=== PATIENT | male | born 1980 | race Caucasian/White ===

== ENCOUNTER 2016-04-14 20:23 | Inpatient (IN) | payer MEDICARE ==
[2016-04-14] MEDS ORDERED: ASPIRIN 81 MG TABLET, CHEWABLE PO ONE (20:44)
[2016-04-14 20:52] LABS: ABSOLUTE BASOPHILS # (AUTO) 0.1 10^3/uL (0.0-0.2); ABSOLUTE EOSINOPHILS # (AUTO) 0.2 10^3/uL (0.0-0.6); ABSOLUTE LYMPHOCYTES (AUTO) 6.5 10^3/uL (0.5-4.7); ABSOLUTE NEUT (AUTO) 8.8 10^3/uL (1.7-8.2); BASOPHILS % (AUTO) 0.9 % (0-2); EOSINOPHILS % (AUTO) 1.2 % (0-6); HEMATOCRIT 47.6 % (37.9-51.0); HEMOGLOBIN 16.2 g/dL (13.5-17.0); LYMPHOCYTES % (AUTO) 38.9 % (13-45); MEAN CORPUSCULAR HEMOGLOBIN 30.9 pg (27.0-33.4); MEAN CORPUSCULAR VOLUME 91 fl (80-97); MONOCYTES % (AUTO) 6.3 % (3-13); RED BLOOD COUNT 5.23 10^6/uL (4.35-5.55); RED CELL DISTRIBUTION WIDTH 13.9 % (11.5-14.0); SEGMENTED NEUTROPHILS % (AUTO) 52.7 % (42-78); WHITE BLOOD COUNT 16.6 10^3/uL (4.0-10.5)
[2016-04-14 21:05] LABS: ALANINE AMINOTRANSFERASE 48 U/L (21-72); ALBUMIN 4.3 g/dL (3.5-5.0); ALKALINE PHOSPHATASE 75 U/L (38-126); ANION GAP 13 (5-19); ASPARTATE AMINO TRANSFERASE 33 U/L (17-59); BILIRUBIN,TOTAL 0.6 mg/dL (0.2-1.3); BLOOD UREA NITROGEN 13 mg/dL (7-20); CALCIUM 10.8 mg/dL (8.4-10.2); CARBON DIOXIDE 25 mmol/L (22-30); CHLORIDE 101 mmol/L (98-107); CREATINE KINASE 46 U/L (55-170); CREATININE RESULT 0.75 mg/dL (0.52-1.25); GLUCOSE 89 mg/dL (75-110); POTASSIUM 4.3 mmol/L (3.6-5.0); SODIUM 138.7 mmol/L (137-145); TOTAL PROTEIN 7.4 g/dL (6.3-8.2)
[2016-04-14 21:15] LABS: CREATINE KINASE MB 0.54 ng/mL (<4.55)
[2016-04-14 21:16] LABS: TROPONIN I < 0.012 ng/mL
[2016-04-14] MEDS ORDERED: MORPHINE SULFATE 10 MG/ML INJ IV ONE ×2 (21:36→23:31)
--- NOTE | 2016-04-14 21:38 | ER Document Report ---
ED Cardiac - General Chief Complaint: Chest Pain Stated Complaint: CHEST PAIN Time seen by provider: 21:36 Mode of Arrival: Medic Information source: Patient TRAVEL OUTSIDE OF THE [place] IN LAST 30 DAYS: No - HPI Patient complains to provider of: Chest pain Was the onset of pain: Sudden Is the pain a: New problem Chest pain location: Substernal Quality of pain: Dull Chest pain radiation location: Left shoulder Severity now: Moderate Severity at worst: Moderate Pain level currently: 3 Chest pain precipitating factors: At Rest Cardiac risk factors: Smoker, Dyslipidemia Positive cardiac history: No Associated symptoms: Shortness of breath Exacerbated by: Denies Relieved by: Nothing Similar symptoms previously: Yes Recently seen / treated by doctor: No Notes: Patient is a 36-year-old male with a history of bipolar, PTSD, anxiety and high cholesterol, presents to the room complaining of left-sided chest pain and pressure that started around 2:00 this afternoon while at rest, it radiates to his left shoulder, reports shortness of breath associated with it, it is dull and achy and pressure-like in nature, with no aggravating or alleviating symptoms, he reports a history of similar symptoms in the past, and received a cardiac catheterization in 2009 which she reports as being normal, states that he has been off of his Lipitor for the past couple of months due to financial issues, he denies any cough, denies any increased stressors or anxiety triggers recently, he is a smoker - Related Data Allergies/Adverse Reactions: erythromycin base [Erythromycin Base] Allergy (Severe, Verified 12/10/15 02:13) Hives lamotrigine [From Lamictal] Allergy (Severe, Verified 12/10/15 02:13) Hives nitroglycerin Allergy (Verified 12/10/15 02:13) Hypotension rhondec Allergy (Severe, Uncoded 12/06/15 20:11) Past Medical History - General Information source: Patient - Social History Smoking Status: Current Every Day Smoker Family History: CAD, Hyperlipidemia, Hypertension - Past Medical History Cardiac Medical History: Reports: Hx Hypercholesterolemia Denies: Hx Coronary Artery Disease, Hx Heart Attack, Hx Hypertension Pulmonary Medical History: Reports: Hx Asthma - LAST ATTACK 08/02/15, Hx Pneumonia - 10/02, Hx Sleep Apnea Denies: Hx Bronchitis, Hx COPD, Hx Tuberculosis Neurological Medical History: Reports: Hx Migraine. 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 - Immunizations Hx Diphtheria, Pertussis, Tetanus Vaccination: Yes Hx Pneumococcal Vaccination: 10/26/12 Review of Systems - Review of Systems Constitutional: No symptoms reported EENT: No symptoms reported Cardiovascular: See HPI Respiratory: See HPI Gastrointestinal: No symptoms reported Genitourinary: No symptoms reported Male Genitourinary: No symptoms reported Musculoskeletal: No symptoms reported Skin: No symptoms reported Hematologic/Lymphatic: No symptoms reported Neurological/Psychological: No symptoms reported -: Yes All other systems reviewed and negative Physical Exam - Vital signs Vitals: Pulse Ox 91 L 04/14/16 20:34 Interpretation: Normal - General General appearance: Appears well, Alert - HEENT Head: Normocephalic, Atraumatic Eyes: Normal Pupils: PERRL - Respiratory Respiratory status: No respiratory distress Chest status: Nontender Breath sounds: Normal Chest palpation: Normal - Cardiovascular Rhythm: Regular Heart sounds: Normal auscultation Murmur: No - Abdominal Inspection: Morbidly Obese Distension: No distension Bowel sounds: Normal Tenderness: Nontender Organomegaly: No organomegaly - Back Back: Normal, Nontender - Extremities General upper extremity: Normal inspection, Nontender, Normal color, Normal ROM , Normal temperature General lower extremity: Normal inspection, Nontender, Normal color, Normal ROM , Normal temperature, Normal weight bearing. No: David's sign - Neurological Neuro grossly intact: Yes Cognition: Normal Orientation: AAOx4 Lance Coma Scale Eye Opening: Spontaneous Lance Coma Scale Verbal: Oriented [place] Coma Scale Motor: Obeys Commands Lance Coma Scale Total: 15 Speech: Normal Motor strength normal: LUE, RUE, LLE, RLE Sensory: Normal - Psychological Associated symptoms: Normal affect, Normal mood - Skin Skin Temperature: Warm Skin Moisture: Dry Skin Color: Normal Course - Re-evaluation Re-evalutation: 04/15/16 01:24 Patient resting comfortably, reports feeling much better and symptoms are completely resolved after receiving a breathing treatment, symptoms are consistent with likely viral upper respiratory infection, however patient is a smoker and does have leukocytosis, therefore he will be placed on a short form course of antibiotics, provided with a prescription for albuterol inhaler as well as his Lipitor which he ran out of several months ago, smoking cessation was discussed, patient was advised to follow-up with his primary care provider in 2-3 days or return if symptoms worsen, patient and spouse at bedside acknowledge understanding and agreement with this plan 04/15/16 02:08 Patient having some periods of hypoxia, when taken off of oxygen prior to discharge, pulse ox ranges from 83-95%, he does report some shortness of breath with this, and is now having chest pain once again, a for a CTA has been ordered to rule out pulmonary embolism intra-thoracic pathology 04/15/16 03:35 patient continues to become hypoxic when oxygen is is removed, he continues to complain of shortness of breath while of it is removed as well, his oxygen saturation drops down to 83-86%, therefore patient was discussed with the hospitalist who agrees to admit for further evaluation and treatment, I did also discuss CT scan findings with patient and at bedside which include to nodules in the right lung which patient was recommended to have a follow-up CT scan in 6 months to reevaluate - Vital Signs Vital signs: Temp Pulse Resp BP Pulse Ox 98.2 F 12 103/69 92 04/15/16 02:00 04/15/16 03:01 04/15/16 03:00 04/15/16 03:01 - Laboratory Result Diagrams: 04/14/16 20:34 04/14/16 20:34 Laboratory results interpreted by me: 04/14/16 04/14/16 04/14/16 20:34 20:34 23:55 WBC 16.6 H Absolute Neutrophils 8.8 H Absolute Lymphocytes 6.5 H Calcium 10.8 H Creatine Kinase 46 L 38 L - Diagnostic Test Radiology reviewed: Image reviewed, Reports reviewed - EKG Interpretation by Me EKG shows normal: Sinus rhythm Rate: Normal Rhythm: NSR When compared to previous EKG there are: No significant change Discharge - Discharge Clinical Impression: Bronchitis COPD (chronic obstructive pulmonary disease) Qualifiers: COPD type: chronic bronchitis Chronic bronchitis type: simple Qualified Code(s) : J41.0 - Simple chronic bronchitis Condition: Stable Disposition: ADMITTED INPATIENT Admitting Provider: Hospitalist Unit Admitted: Telemetry Additional Instructions: Follow up with your primary care provider in one to 2 days. Return to the emergency room immediately if symptoms worsen or any additional concerns. Stop smoking! Prescriptions: Atorvastatin Calcium [Lipitor 40 mg Tablet] 40 mg PO QHS #30 tablet Albuterol Sulfate [Proair HFA Inhalation Aerosol 8.5 gm MDI] 1 puff IH Q4 PRN # 1 mdi PRN Reason: Levofloxacin [Levaquin 750 mg Tablet] 750 mg PO DAILY #4 tablet Forms: Smoking Cessation Education Referrals: POOL TOVAR MD [Primary Care Provider] - Follow up as needed
[2016-04-15] MEDS ORDERED: ALBUTEROL SULFATE 0.083% NEB 2.5 MG/3 ML AMPUL NEB ONE (00:49)
[2016-04-15 00:54] LABS: CREATINE KINASE MB 0.34 ng/mL (<4.55)
[2016-04-15 01:00] LABS: TROPONIN I < 0.012 ng/mL
[2016-04-15] MEDS ORDERED: LEVOFLOXACIN 500 MG TABLET PO ONE (01:22)
[2016-04-15] MEDS ORDERED: LEVOFLOXACIN 750 MG TABLET PO ONE (01:24)
[2016-04-15] MEDS ORDERED: IPRATROPIUM/ALBUTEROL 0.5-2.5 MG/3 ML AMPUL NEB ONE ×2 (01:30→03:33)
[2016-04-15] MEDS ORDERED: METHYLPREDNISOLONE INJ 125 MG/2 ML SDV IV ONE (01:30)
[2016-04-15] MEDS ORDERED: ALBUTEROL SULFATE HFA (90 MCG/PUFF) 8 GM MDI (1 MDI/ER DISP) IH SCH (02:00)
[2016-04-15] MEDS ORDERED: NICOTINE 14 MG/24 HR PATCH.TD24 TD PRN (04:50)
[2016-04-15] MEDS ORDERED: GUAIFENESIN SYRP 200 MG/10 ML UDC PO PRN (04:51)
[2016-04-15] MEDS ORDERED: ALBUTEROL SULFATE 0.083% NEB 2.5 MG/3 ML AMPUL NEB PRN (04:51)
[2016-04-15] MEDS ORDERED: ACETAMINOPHEN 325 MG TABLET PO PRN (04:51)
[2016-04-15] MEDS ORDERED: INSULIN LISPRO 100 UNIT/ML 3 ML VIAL SUBCUT PRN (04:52)
[2016-04-15] MEDS ORDERED: GLUCAGON,HUMAN RECOMB 1 MG INJ IM PRN (04:52)
[2016-04-15] MEDS ORDERED: DEXTROSE 40% GEL 15 GM TUBE PO PRN ×2 (04:52)
[2016-04-15] MEDS ORDERED: DEXTROSE 50%-WATER 25 GM/50 ML DISP.SYRIN IV PRN ×2 (04:52)
--- NOTE | 2016-04-15 05:20 | PDOC H&P ---
History of Present Illness Admission Date/PCP: 04/15/16 03:[address] Char HATHAWAY Psychiatry Patient complains of: Chest pain History of Present Illness: ANNA ELLIS is a 36 year old morbidly obese male, with underlying hyperlipidemia, asthma versus COPD versus reactive airway disease, obstructive sleep apnea, not on CPAP due to device being removed from his home, history of migraine headaches, arthritis, esophageal reflux disease, bipolar disorder and posttraumatic stress disorder who presents to the emergency room for evaluation of sudden onset of left-sided pressure-like chest pain approximately 2 PM the afternoon of the while at rest. Radiated to his left shoulder. Nothing made the pain worse or better. Some associated shortness of breath and nausea, but no fever or chills. No sick contacts. To three-day history of a dry hacking cough. Currently chest pain-free. Was noted to be hypoxic on room air in the emergency room, low to mid 80 percentile range. This alter the emergency room physician's initial plans to discharge the gentleman home. He is status post what he describes as a negative cardiac catheterization in 2009. No history of pulmonary embolus or DVT, myocardial infarction or congestive heart failure. Less than a pack-a-day smoker. No alcohol or illicit drug use. Patient has been discussed with emergency room physician who evaluated the patient. . Laboratory results are listed in [employer] and are reviewed. X-ray summary results are listed below, with full report(s) reviewed. . EKG reviewed. Social history/personal habits: from his . No children. On disability due to a number of health problems, including chronic back pain. Personal habits as noted above. Allergies/adverse reactions are listed in [employer] and are reviewed. Home medications are reviewed by discussion with patient and have been reconciled by nursing staff in [facility]. Home medications initially autopopulated into [employer] may not accurately reflect patient's true medications, dosages, and/or frequencies. REVIEW OF SYSTEMS: Constitutional: No fever or chills. Eyes: Wears contacts. ENT: No swallowing problems or complaints. No hearing problems or complaints. Pulmonary: See history and present illness. Cardiovascular: See history and present illness. Gastrointestinal: See history and present illness. Skin: No current complaints, including rashes. Hematologic: No unusual easy bruising or bleeding. Neurologic: No current complaints, including numbness or tingling. Musculoskeletal: Chronic back pain. Psychiatric: Mild depression; denies suicidal or homicidal ideation. Endocrine: No current complaints, including polyuria. Genitourinary: No current complaints, including dysuria. PHYSICAL EXAMINATION: 5 feet 7 inches tall. 138.3 kg. BMI 47.8 kg/m. Temperature 98.2. Blood pressure 118/59. Pulse 83 and regular. 92% saturation on 2 L oxygen per nasal cannula. Respirations are 24 and unlabored. Morbidly obese otherwise well-developed bearded male appearing approximately his stated age. Pleasant awake alert and cooperative. Slightly anxious, but no annemarie agitation. Skin is warm and dry. No grossly obvious evidence of rash in areas of skin examined. No subcutaneous nodules palpated. ENT: Hearing grossly normal to normal conversation. Tongue midline on protrusion pink and slightly tacky. Eyes: No scleral icterus. Pupils equal and reactive to light at 4 mm. [place] conjunctivae. Neck is supple and nontender to gentle active range of motion and palpation. Midline trachea. No palpable thyroid nodule mass enlargement or tenderness. Lymphatic: No palpable cervical or clavicular nodes. Neck and lymphatic exams limited by patient body habitus. Psychiatric: Reasonable insight into acute and chronic medical issues. Oriented to time location and why here. Lungs: Auscultation reveals clear and equal breath sounds bilaterally. No use of accessory respiratory muscles. Cardiovascular: Heart regular rate and rhythm, without gallop murmur or rub. No carotid or abdominal aortic bruits. No ankle or pedal edema. Faintly palpable dorsalis pedis pulses. Abdomen: soft, obese, nontender with positive bowel sounds. Unable to adequately evaluate abdomen for masses or organomegaly due to body habitus. Extremities: Feet are warm and dry. No calf tenderness to compression. No grossly obvious visual evidence of calf swelling. Gentle manipulation of lower extremities fails to reveal any obvious evidence of injury or instability to knees hips or ankles. Neurologic: Moves upper extremities grossly normally. Patellar reflexes absent. Absent Babinski. Light touch is intact at feet. Dorsiflexion and plantarflexion of feet 5 / 5 and symmetric. 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 Hematology: Reports: Anemia - A CHILD Past Surgical History Past Surgical History: Reports: Cardiac Catheterization - dx with "cardiac spasms" 2010, Cholecystectomy Social History Information Source: Patient, Emergency Med Personnel, [facility] Records Smoking Status: Current Every Day Smoker Frequency of Alcohol Use: None Hx Recreational Drug Use: No Hx Prescription Drug Abuse: No - Advance Directive Resuscitation Status: Full Code Surrogate healthcare decision maker:: Mother Family History Family History: CAD, Hyperlipidemia, Hypertension Parental Family History Reviewed: Yes Children Family History Reviewed: NA Sibling(s) Family History Reviewed.: Yes Medication/Allergy Home Medications: Divalproex Sodium [Depakote ER 500 mg Tab.sr] 1,000 mg PO BID 05/02/13 Aripiprazole [Abilify 10 mg Tablet] 30 mg PO DAILY 08/08/15 Clonidine HCl [Catapres 0.2 mg Tablet] 0.1 mg PO DAILY 08/08/15 Mirtazapine [Remeron] 45 mg PO DAILY 08/08/15 Omeprazole [Prilosec] 40 mg PO DAILY 08/08/15 Paroxetine HCl [Paxil] 50 mg PO DAILY 08/08/15 Suvorexant [Belsomra] 20 mg PO DAILY 08/08/15 Alprazolam [Xanax] 2 mg PO BID 12/10/15 Albuterol Sulfate [Proair HFA Inhalation Aerosol 8.5 gm MDI] 1 puff IH Q4 PRN # 1 mdi 04/15/16 Atorvastatin Calcium [Lipitor 40 mg Tablet] 40 mg PO QHS #30 tablet 04/15/16 Levofloxacin [Levaquin 750 mg Tablet] 750 mg PO DAILY #4 tablet 04/15/16 Trazodone HCl 100 mg PO DAILY 04/15/16 Allergies/Adverse Reactions: erythromycin base [Erythromycin Base] Allergy (Severe, Verified 04/15/16 03:50) Hives lamotrigine [From Lamictal] Allergy (Severe, Verified 04/15/16 03:50) Hives nitroglycerin Allergy (Verified 04/15/16 03:50) Hypotension rhondec Allergy (Severe, Uncoded 12/06/15 20:11) Physical Exam Vital Signs: Temp Pulse Resp BP Pulse Ox 98.2 F 22 H 118/59 L 90 L 04/15/16 02:00 04/15/16 04:01 04/15/16 04:01 04/15/16 04:01 Results Impressions: Chest X-Ray 04/14/16 20:44 IMPRESSION: NO ACUTE RADIOGRAPHIC FINDING IN THE CHEST. Chest/Abdomen CTA 04/15/16 02:08 IMPRESSION: No evidence of pulmonary emboli. New small ground-glass nodularity of the right middle lobe measures up to 0.6 cm. 3 month follow-up CT of the chest recommended. Assessment & Plan - Diagnosis (1) Chest pain Qualifiers: Chest pain type: other chest pain Qualified Code(s): R07.89 - Other chest pain; R07.8 - Other chest pain Is this a current diagnosis for this admission?: YesPlan: Unlikely due to acute coronary syndrome, but will obtain a third troponin. Patient urged to notify staff should chest pain recur. (2) Hypoxia Is this a current diagnosis for this admission?: Yes (3) Nodule of right lung Is this a current diagnosis for this admission?: YesPlan: Outpatient follow-up recommended to patient by emergency room physician. (4) COPD exacerbation Is this a current diagnosis for this admission?: YesPlan: Patient will be admitted under COPD exacerbation protocol. Incentive spirometry twice a day. Scheduled DuoNeb's. PRN albuterol nebs daily prednisone. Prevacid for gastritis prophylaxis. Antibiotics will consist of Rocephin and intravenous doxycycline.. I strongly encouraged patient to notify staff should patient feel that respiratory status is worsening. Patient is a full code. I have strongly urged patient to be careful getting out of bed, to avoid a fall with injury. Knee high SCDs for DVT prophylaxis, along with subcutaneous Lovenox Impression and plans were discussed with patient, who concurs. Time spent in evaluation and management of patient: 64 minutes. (5) Obstructive sleep apnea Is this a current diagnosis for this admission?: YesPlan: CPAP (6) Tobacco abuse Is this a current diagnosis for this admission?: YesPlan: When necessary nicotine patch - Inpatient Certification Based on my medical assessment, after consideration of the patient's comorbidities, presenting symptoms, or acuity I expect that the services needed warrant INPATIENT care.: Yes I certify that my determination is in accordance with my understanding of Medicare's requirements for reasonable and necessary INPATIENT services [42 CFR 412.3e].: Yes Medical Necessity: Need Close Monitoring Due to Risk of Patient Decompensation, Need For Continuous Telemetry Monitoring, Need for Nebulizer Therapy and Monitoring of Response, Need for IV Antibiotics, Risk of Complication if Not Cared For in Hospital Post Hospital Care: D/C or Transfer Summary
[2016-04-15] MEDS: CEFTRIAXONE 1 GM/D5W RTU 50 ML IV SCH (05:43)
[2016-04-15] MEDS: LANSOPRAZOLE 30 MG TAB.RAP.DR PO SCH (05:44)
[2016-04-15] MEDS ORDERED: DOXYCYCLINE HYCLATE INJ 100 MG VIAL IV SCH (06:00)
[2016-04-15 07:11] LABS: ABSOLUTE BASOPHILS # (AUTO) 0.1 10^3/uL (0.0-0.2); ABSOLUTE LYMPHOCYTES (AUTO) 1.6 10^3/uL (0.5-4.7); ABSOLUTE MONOCYTES (AUTO) 0.2 10^3/uL (0.1-1.4); ABSOLUTE NEUT (AUTO) 13.2 10^3/uL (1.7-8.2); BASOPHILS % (AUTO) 0.6 % (0-2); EOSINOPHILS % (AUTO) 0.1 % (0-6); HEMATOCRIT 46.3 % (37.9-51.0); HEMOGLOBIN 15.6 g/dL (13.5-17.0); HGB HCT DIFFERENCE 0.5; LYMPHOCYTES % (AUTO) 10.9 % (13-45); MEAN CORPUSCULAR HEMOGLOBIN 30.6 pg (27.0-33.4); MEAN CORPUSCULAR HGB CONC 33.7 g/dL (32.0-36.0); MEAN CORPUSCULAR VOLUME 91 fl (80-97); MONOCYTES % (AUTO) 1.1 % (3-13); RED CELL DISTRIBUTION WIDTH 13.6 % (11.5-14.0); SEGMENTED NEUTROPHILS % (AUTO) 87.3 % (42-78); WHITE BLOOD COUNT 15.1 10^3/uL (4.0-10.5)
[2016-04-15] MEDS: IPRATROPIUM/ALBUTEROL 0.5-2.5 MG/3 ML AMPUL NEB SCH ×3 (07:51→20:01)
[2016-04-15] MEDS: ENOXAPARIN SODIUM INJ 40 MG/0.4 ML DISP.SYRIN SUBCUT SCH (07:52)
[2016-04-15] MEDS: PREDNISONE 20 MG TABLET PO SCH (10:44)
--- NOTE | 2016-04-15 11:42 | PDOC PROGRESS REPORT ---
Subjective Progress Note for:: 04/15/16 Subjective:: The patient is currently resting in bed. Patient states that his symptoms have improved since admission. Still unable to fully complete sentences. Dry cough. No pain. Physical Exam Vital Signs: Temp Pulse Resp BP Pulse Ox 97.2 F 84 16 100/64 96 04/15/16 09:15 04/15/16 09:15 04/15/16 09:15 04/15/16 09:15 04/15/16 09:15 General appearance: PRESENT: no acute distress, cooperative, well-developed, well-nourished Head exam: PRESENT: atraumatic, normocephalic Eye exam: PRESENT: conjunctiva pink, EOMI, PERRLA. ABSENT: scleral icterus Ear exam: PRESENT: normal external ear exam Mouth exam: PRESENT: moist, tongue midline Neck exam: ABSENT: carotid bruit, JVD, lymphadenopathy, thyromegaly Respiratory exam: PRESENT: decreased breath sounds, symmetrical. ABSENT: rales , rhonchi, tachypnea, unlabored, wheezes Cardiovascular exam: PRESENT: RRR. ABSENT: diastolic murmur, rubs, systolic murmur Pulses: PRESENT: normal dorsalis pedis pul Vascular exam: PRESENT: normal capillary refill GI/Abdominal exam: PRESENT: normal bowel sounds, soft. ABSENT: distended, guarding, mass, organolmegaly, rebound, tenderness Rectal exam: PRESENT: deferred Extremities exam: PRESENT: full ROM. ABSENT: calf tenderness, clubbing, pedal edema Neurological exam: PRESENT: alert, awake, oriented to person, oriented to place , oriented to time, oriented to situation, CN II-XII grossly intact. ABSENT: motor sensory deficit Psychiatric exam: PRESENT: appropriate affect, normal mood. ABSENT: homicidal ideation, suicidal ideation Skin exam: PRESENT: dry, intact, warm. ABSENT: cyanosis, rash Results Laboratory Results: 04/15/16 06:51 04/15/16 06:51 WBC 15.1 H RBC 5.10 Hgb 15.6 Hct 46.3 MCV 91 MCH 30.6 MCHC 33.7 RDW 13.6 Plt Count 232 Seg Neutrophils % 87.3 H Lymphocytes % 10.9 L Monocytes % 1.1 L Eosinophils % 0.1 Basophils % 0.6 Absolute Neutrophils 13.2 H Absolute Lymphocytes 1.6 Absolute Monocytes 0.2 Absolute Eosinophils 0.0 Absolute Basophils 0.1 04/15/16 06:51 Troponin I < 0.012 Impressions: Chest X-Ray 04/14/16 20:44 IMPRESSION: NO ACUTE RADIOGRAPHIC FINDING IN THE CHEST. Chest/Abdomen CTA 04/15/16 02:08 IMPRESSION: No evidence of pulmonary emboli. New small ground-glass nodularity of the right middle lobe measures up to 0.6 cm. 3 month follow-up CT of the chest recommended. Assessment & Plan - Diagnosis (1) Acute hypoxemic respiratory failure Is this a current diagnosis for this admission?: YesPlan: Will continue supplemental O2 (2) Reactive airway disease Qualifiers: Asthma severity: mild intermittent Asthma complication type: with acute exacerbation Qualified Code(s): J45.21 - Mild intermittent asthma with (acute) exacerbation Is this a current diagnosis for this admission?: YesPlan: Will continue steroids and nebs. Will add singular. (3) Bronchitis Is this a current diagnosis for this admission?: YesPlan: Will continue Doxy (4) Nodule of right lung Is this a current diagnosis for this admission?: YesPlan: 3 month follow-up (5) GERD (gastroesophageal reflux disease) Qualifiers: Esophagitis presence: without esophagitis Qualified Code(s): K21.9 - Gastro-esophageal reflux disease without esophagitis Is this a current diagnosis for this admission?: YesPlan: Continue home meds (6) Obstructive sleep apnea Is this a current diagnosis for this admission?: YesPlan: Continue CPAP at night (7) Morbid obesity with BMI of 50.0-59.9, adult Is this a current diagnosis for this admission?: Yes (8) Bipolar disorder Is this a current diagnosis for this admission?: No (9) Hyperlipidemia Is this a current diagnosis for this admission?: No (10) PTSD (post-traumatic stress disorder) Is this a current diagnosis for this admission?: No (11) Tobacco abuse Is this a current diagnosis for this admission?: Yes - Time Time Spent with patient: 35 or more minutes Medications reviewed and adjusted accordingly: Yes Anticipated discharge: Home Within: within 24 hours, within 48 hours
[2016-04-15] MEDS ORDERED: ALBUTEROL SULFATE HFA (90 MCG/PUFF) 8 GM MDI (1 MDI/ER DISP) IH PRN (13:22)
[2016-04-15] MEDS ORDERED: (PENDING PHARMACY ID) (Paroxetine Hcl [Paxil] 10 MG) PO SCH (13:30)
[2016-04-15] MEDS ORDERED: ARIPIPRAZOLE 5 MG TABLET PO ONE (14:00)
[2016-04-15] MEDS ORDERED: PAROXETINE HCL 20 MG TABLET PO ONE ×2 (14:00)
[2016-04-15] MEDS ORDERED: DIVALPROEX SODIUM 500 MG TAB.SR.24H PO ONE (14:00)
[2016-04-15] MEDS: ALPRAZOLAM 0.5 MG TABLET PO PRN ×2 (15:13→21:45)
[2016-04-15] MEDS ORDERED: ALBUTEROL SULFATE HFA (90 MCG/PUFF) 200 PUFF/8.5 GM MDI IH PRN (15:35)
[2016-04-15] MEDS ORDERED: LANSOPRAZOLE 30 MG TAB.RAP.DR PO ONE (16:00)
[2016-04-15] MEDS: DOXYCYCLINE HYCLATE 100 MG in DEXTROSE 5%-WATER 250 ML IV SCH (17:02)
--- NOTE | 2016-04-15 17:42 | EKG REPORT ---
SEVERITY:- NORMAL ECG - SINUS RHYTHM : Confirmed by: Nat May MD 15-Apr-2016 17:42:11
[2016-04-15] MEDS: DIVALPROEX SODIUM 500 MG TAB.SR.24H PO SCH (21:40)
[2016-04-15] MEDS ORDERED: (PENDING PHARMACY ID) (Mirtazapine [Remeron] 45 MG) PO SCH (22:00)
[2016-04-15] MEDS ORDERED: MIRTAZAPINE 15 MG TABLET PO SCH (22:00)
[2016-04-15] MEDS ORDERED: ATORVASTATIN CALCIUM 40 MG TABLET PO SCH (22:00)
[2016-04-15] MEDS ORDERED: (PENDING PHARMACY ID) (Trazodone Hcl [Desyrel] 100 MG) PO SCH (22:00)
[2016-04-15] MEDS ORDERED: TRAZODONE HCL 50 MG TABLET PO SCH (22:00)
[2016-04-16] MEDS: DOXYCYCLINE HYCLATE 100 MG in DEXTROSE 5%-WATER 250 ML IV SCH (05:47)
[2016-04-16] MEDS: LANSOPRAZOLE 30 MG TAB.RAP.DR PO SCH (05:51)
[2016-04-16] MEDS ORDERED: LANSOPRAZOLE 30 MG TAB.RAP.DR PO SCH (06:00)
[2016-04-16] MEDS: IPRATROPIUM/ALBUTEROL 0.5-2.5 MG/3 ML AMPUL NEB SCH ×2 (08:25→13:43)
[2016-04-16] MEDS: ENOXAPARIN SODIUM INJ 40 MG/0.4 ML DISP.SYRIN SUBCUT SCH (09:06)
[2016-04-16] MEDS: DIVALPROEX SODIUM 500 MG TAB.SR.24H PO SCH (09:08)
[2016-04-16] MEDS: CEFTRIAXONE 1 GM/D5W RTU 50 ML IV SCH (09:08)
[2016-04-16] MEDS: PREDNISONE 20 MG TABLET PO SCH (09:09)
[2016-04-16] MEDS: ALPRAZOLAM 0.5 MG TABLET PO PRN (09:09)
[2016-04-16] MEDS ORDERED: ARIPIPRAZOLE 5 MG TABLET PO SCH (10:00)
[2016-04-16] MEDS ORDERED: PAROXETINE HCL 20 MG TABLET PO SCH ×2 (10:00)
[2016-04-16 11:30] VITALS: BP 126/76
--- NOTE | 2016-04-16 14:33 | PDOC DISCHARGE SUMMARY ---
General - Admit/Disc Date/PCP Admission Date/Primary Care Provider: 04/15/16 04:51 POOL SPENCER MD Discharge Date: 04/16/16 - Discharge Diagnosis (1) Acute hypoxemic respiratory failure Is this a current diagnosis for this admission?: Yes (2) Reactive airway disease Is this a current diagnosis for this admission?: Yes (3) Bronchitis Is this a current diagnosis for this admission?: Yes (4) Nodule of right lung Is this a current diagnosis for this admission?: Yes (5) GERD (gastroesophageal reflux disease) Is this a current diagnosis for this admission?: Yes (6) Obstructive sleep apnea Is this a current diagnosis for this admission?: Yes (7) Morbid obesity with BMI of 50.0-59.9, adult Is this a current diagnosis for this admission?: Yes (8) Bipolar disorder Is this a current diagnosis for this admission?: Yes (9) Hyperlipidemia Is this a current diagnosis for this admission?: Yes (10) PTSD (post-traumatic stress disorder) Is this a current diagnosis for this admission?: Yes (11) Tobacco abuse Is this a current diagnosis for this admission?: Yes - Additional Information Resuscitation Status: Full Code Discharge Diet: As Tolerated Discharge Activity: Activity As Tolerated Home Medications: Albuterol Sulfate [Proair HFA] 1 puff PO Q4HP PRN 04/15/16 Alprazolam [Xanax] 2 mg PO BID 04/15/16 Aripiprazole [Abilify 30 mg Tablet] 30 mg PO DAILY 04/15/16 Atorvastatin Calcium [Lipitor 40 mg Tablet] 40 mg PO QHS 04/15/16 Divalproex Sodium [Divalproex Sodium ER] 1,000 mg PO BID 04/15/16 Mirtazapine [Remeron] 45 mg PO QHS 04/15/16 Omeprazole 40 mg PO DAILY 04/15/16 Paroxetine HCl [Paxil] 10 mg PO DAILY 04/15/16 Paroxetine HCl [Paxil] 40 mg PO DAILY 04/15/16 Suvorexant [Belsomra] 20 mg PO QHS 04/15/16 Trazodone HCl [Desyrel] 100 mg PO QHS 04/15/16 Doxycycline Hyclate [Vibramycin] 100 mg PO BID #16 capsule 04/16/16 Prednisone [Deltasone 10 mg Tablet] 10 mg PO ASDIR PRN #21 tablet 04/16/16 History of Present Illness Patient complains of: Shortness of breath History of Present Illness: ANNA ELLIS is a 36 year old morbidly obese male, with underlying hyperlipidemia, asthma versus COPD versus reactive airway disease, obstructive sleep apnea, not on CPAP due to device being removed from his home, history of migraine headaches, arthritis, esophageal reflux disease, bipolar disorder and posttraumatic stress disorder who presents to the emergency room for evaluation of sudden onset of left-sided pressure-like chest pain approximately 2 PM the afternoon of the while at rest. Radiated to his left shoulder. Nothing made the pain worse or better. Some associated shortness of breath and nausea, but no fever or chills. No sick contacts. To three-day history of a dry hacking cough. Was noted to be hypoxic on room air in the emergency room, low to mid 80 percentile range. This alter the emergency room physician's initial plans to discharge the gentleman home. He is status post what he describes as a negative cardiac catheterization in 2009. No history of pulmonary embolus or DVT, myocardial infarction or congestive heart failure. Less than a pack-a-day smoker. No alcohol or illicit drug use.The patient was referred to the hospitalists for observation and management. Hospital Course Hospital Course: The patient was admitted to continuous telemetry unit. The patient was placed on scheduled nebs as well as PRN nebs, steroids, and supplemental oxygen. The patient's oxygen, steroids, and nebs were titrated and weaned. The patient is back to baseline and able to complete sentences. The patient was placed on doxycycline given his symptoms of bronchitis. The patient has made substantial improvements overnight and is able to maintain his oxygen on room air. The patient was ambulated and did not drop below 93%. The patient is agreeable to discharge with the grants he will follow with his primary care provider. Physical Exam Vital Signs: Temp Pulse Resp BP Pulse Ox 97.3 F 82 16 126/76 H 92 04/16/16 14:20 04/16/16 14:20 04/16/16 14:20 04/16/16 14:20 04/16/16 14:20 Intake & Output 04/14/16 04/15/16 04/16/16 23:59 23:59 23:59 Intake Total 700 1270 Output Total 300 350 Balance 400 920 General appearance: PRESENT: no acute distress, cooperative, well-developed, well-nourished Head exam: PRESENT: atraumatic, normocephalic Eye exam: PRESENT: conjunctiva pink, EOMI, PERRLA. ABSENT: scleral icterus Ear exam: PRESENT: normal external ear exam Mouth exam: PRESENT: moist, tongue midline Neck exam: ABSENT: carotid bruit, JVD, lymphadenopathy, thyromegaly Respiratory exam: PRESENT: decreased breath sounds, symmetrical. ABSENT: rales , rhonchi, tachypnea, unlabored, wheezes Cardiovascular exam: PRESENT: RRR. ABSENT: diastolic murmur, rubs, systolic murmur Pulses: PRESENT: normal dorsalis pedis pul Vascular exam: PRESENT: normal capillary refill GI/Abdominal exam: PRESENT: normal bowel sounds, soft. ABSENT: distended, guarding, mass, organolmegaly, rebound, tenderness Rectal exam: PRESENT: deferred Extremities exam: PRESENT: full ROM. ABSENT: calf tenderness, clubbing, pedal edema Neurological exam: PRESENT: alert, awake, oriented to person, oriented to place , oriented to time, oriented to situation, CN II-XII grossly intact. ABSENT: motor sensory deficit Psychiatric exam: PRESENT: appropriate affect, normal mood. ABSENT: homicidal ideation, suicidal ideation Skin exam: PRESENT: dry, intact, warm. ABSENT: cyanosis, rash Results Laboratory Results: Labs- Last Values WBC 15.1 10^3/uL (4.0-10.5) H 04/15/16 06:51 RBC 5.10 10^6/uL (4.35-5.55) 04/15/16 06:51 Hgb 15.6 g/dL (13.5-17.0) 04/15/16 06:51 Hct 46.3 % (37.9-51.0) 04/15/16 06:51 MCV 91 fl (80-97) 04/15/16 06:51 MCH 30.6 pg (27.0-33.4) 04/15/16 06:51 MCHC 33.7 g/dL (32.0-36.0) 04/15/16 06:51 RDW 13.6 % (11.5-14.0) 04/15/16 06:51 Plt Count 232 10^3/uL (150-450) 04/15/16 06:51 Seg Neutrophils % 87.3 % (42-78) H 04/15/16 06:51 Lymphocytes % 10.9 % (13-45) L 04/15/16 06:51 Monocytes % 1.1 % (3-13) L 04/15/16 06:51 Eosinophils % 0.1 % (0-6) 04/15/16 06:51 Basophils % 0.6 % (0-2) 04/15/16 06:51 Absolute Neutrophils 13.2 10^3/uL (1.7-8.2) H 04/15/16 06:51 Absolute Lymphocytes 1.6 10^3/uL (0.5-4.7) 04/15/16 06:51 Absolute Monocytes 0.2 10^3/uL (0.1-1.4) 04/15/16 06:51 Absolute Eosinophils 0.0 10^3/uL (0.0-0.6) 04/15/16 06:51 Absolute Basophils 0.1 10^3/uL (0.0-0.2) 04/15/16 06:51 Sodium 138.7 mmol/L (137-145) 04/14/16 20:34 Potassium 4.3 mmol/L (3.6-5.0) 04/14/16 20:34 Chloride 101 mmol/L (98-107) 04/14/16 20:34 Carbon Dioxide 25 mmol/L (22-30) 04/14/16 20:34 Anion Gap 13 (5-19) 04/14/16 20:34 BUN 13 mg/dL (7-20) 04/14/16 20:34 Creatinine 0.75 mg/dL (0.52-1.25) 04/14/16 20:34 Est GFR ( Amer) > 60 (>60) 04/14/16 20:34 Est GFR (Non-Af Amer) > 60 (>60) 04/14/16 20:34 Glucose 89 mg/dL (75-110) 04/14/16 20:34 POC Glucose 101 mg/dL (70-110) 04/16/16 11:14 Calcium 10.8 mg/dL (8.4-10.2) H 04/14/16 20:34 Total Bilirubin 0.6 mg/dL (0.2-1.3) 04/14/16 20:34 Direct Bilirubin 0.0 mg/dL (0.0-0.3) 04/14/16 20:34 AST 33 U/L (17-59) 04/14/16 20:34 ALT 48 U/L (21-72) 04/14/16 20:34 Alkaline Phosphatase 75 U/L (38-126) 04/14/16 20:34 Creatine Kinase 38 U/L (55-170) L 04/14/16 23:55 CK-MB (CK-2) 0.34 ng/mL (<4.55) 04/14/16 23:55 Troponin I < 0.012 ng/mL 04/15/16 06:51 Total Protein 7.4 g/dL (6.3-8.2) 04/14/16 20:34 Albumin 4.3 g/dL (3.5-5.0) 04/14/16 20:34 Impressions: Chest X-Ray 04/14/16 20:44 IMPRESSION: NO ACUTE RADIOGRAPHIC FINDING IN THE CHEST. Chest/Abdomen CTA 04/15/16 02:08 IMPRESSION: No evidence of pulmonary emboli. New small ground-glass nodularity of the right middle lobe measures up to 0.6 cm. 3 month follow-up CT of the chest recommended. Qualifiers PATEINT BEING DISCHARGED WITH ANY OF THE FOLLOWING DIAGNOSIS?: No Plan Discharge Plan: The patient is to followup with their primary care provider, Dr. Spencer, within one week for hospital followup regarding asthma exacerbation and bronchitis. Time Spent: Less than 30 Minutes
== END 2016-04-16 14:49 | disposition home or self-care (01) | DRG 190 ==
LOC: ER 20:23 → UNDOADMIN 04-15 03:44 → EH 04-15 03:44 → 4S 04-15 09:10
PROVIDERS: ADMIT Family Medicine; ATTEND Family Medicine
PROC: 3E0F73Z Introduction of Anti-inflammatory into Respiratory Tract, Via Natural or Artificial Opening (ICD-10-PCS; principal; 2016-04-15)
DX: J44.1 Chronic obstructive pulmonary disease with (acute) exacerbation (principal); J96.01 Acute respiratory failure with hypoxia; J45.21 Mild intermittent asthma with (acute) exacerbation; Z68.43 Body mass index [BMI] 50.0-59.9, adult; R91.1 Solitary pulmonary nodule; K21.9 Gastro-esophageal reflux disease without esophagitis; G47.33 Obstructive sleep apnea (adult) (pediatric); E66.01 Morbid (severe) obesity due to excess calories; F31.9 Bipolar disorder, unspecified; E78.5 Hyperlipidemia, unspecified; F43.10 Post-traumatic stress disorder, unspecified; M19.90 Unspecified osteoarthritis, unspecified site; G43.909 Migraine, unspecified, not intractable, without status migrainosus; G89.29 Other chronic pain; M54.9 Dorsalgia, unspecified; F17.210 Nicotine dependence, cigarettes, uncomplicated; I25.10 Atherosclerotic heart disease of native coronary artery without angina pectoris; E78.00 Pure hypercholesterolemia, unspecified; I10 Essential (primary) hypertension; J45.909 Unspecified asthma, uncomplicated; Z59.9 Problem related to housing and economic circumstances, unspecified; Z79.899 Other long term (current) drug therapy; Z88.1 Allergy status to other antibiotic agents; Z88.8 Allergy status to other drugs, medicaments and biological substances; Z82.49 Family history of ischemic heart disease and other diseases of the circulatory system
CPT/HCPCS: 36415; 71010; 71275; 80053; 82550; 82553; 82962; 84484; 85025; 87040; 87077; 87186; 93005; 93010; 94640; 94799; 96374; 96376; 99285; J0696; J1650; J1815; J2270; J2930; J3490; J7060; J7512; J7620

== ENCOUNTER 2016-06-18 11:56 | Emergency (ER) | payer MEDICARE ==
--- NOTE | 2016-06-18 12:57 | ER Document Report ---
ED Medical Screen (RME) - General Stated Complaint: CHEST PAIN Time seen by provider: 12:55 Mode of Arrival: Wheelchair Information source: Patient Notes: 36 yo obese smoker with COPD. hyperlipedmia, sleep apneic (without machine) started with shortness of breath(not getting enought in) at midnight, due to mild cough, had to sleep sitting up. Left anterior chest pain radiates into left shoulder since 10:45 this am. Cath years ago negative. No leg pain. TRAVEL OUTSIDE OF THE [place] IN LAST 30 DAYS: No - Related Data Allergies/Adverse Reactions: erythromycin base [Erythromycin Base] Allergy (Severe, Verified 04/15/16 03:50) Hives lamotrigine [From Lamictal] Allergy (Severe, Verified 04/15/16 03:50) Hives nitroglycerin Allergy (Verified 04/15/16 03:50) Hypotension rhondec Allergy (Severe, Uncoded 12/06/15 20:11) Past Medical History - Past Medical History Cardiac Medical History: Reports: Hx Hypercholesterolemia Denies: Hx Coronary Artery Disease, Hx Heart Attack, Hx Hypertension Pulmonary Medical History: Reports: Hx Asthma - LAST ATTACK 08/02/15, Hx Pneumonia - 10/02, Hx Sleep Apnea Denies: Hx Bronchitis, Hx COPD, Hx Tuberculosis Neurological Medical History: Reports: Hx Migraine. 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 - Immunizations Hx Diphtheria, Pertussis, Tetanus Vaccination: Yes
[2016-06-18 12:58] VITALS: BP 129/74
[2016-06-18] MEDS ORDERED: IPRATROPIUM/ALBUTEROL 0.5-2.5 MG/3 ML AMPUL NEB ONE (12:58)
[2016-06-18] MEDS ORDERED: ASPIRIN 81 MG TABLET, CHEWABLE PO ONE (12:58)
[2016-06-18] MEDS ORDERED: PREDNISONE 20 MG TABLET PO ONE (12:58)
[2016-06-18 13:34] LABS: ABSOLUTE BASOPHILS # (AUTO) 0.2 10^3/uL (0.0-0.2); ABSOLUTE EOSINOPHILS # (AUTO) 0.1 10^3/uL (0.0-0.6); ABSOLUTE LYMPHOCYTES (AUTO) 3.6 10^3/uL (0.5-4.7); ABSOLUTE MONOCYTES (AUTO) 1.4 10^3/uL (0.1-1.4); ABSOLUTE NEUT (AUTO) 8.5 10^3/uL (1.7-8.2); BASOPHILS % (AUTO) 1.2 % (0-2); EOSINOPHILS % (AUTO) 0.9 % (0-6); HEMATOCRIT 46.8 % (37.9-51.0); HEMOGLOBIN 16.1 g/dL (13.5-17.0); HGB HCT DIFFERENCE 1.5; MEAN CORPUSCULAR HEMOGLOBIN 31.3 pg (27.0-33.4); MEAN CORPUSCULAR HGB CONC 34.5 g/dL (32.0-36.0); MEAN CORPUSCULAR VOLUME 91 fl (80-97); MONOCYTES % (AUTO) 10.4 % (3-13); RED BLOOD COUNT 5.16 10^6/uL (4.35-5.55); RED CELL DISTRIBUTION WIDTH 13.7 % (11.5-14.0); SEGMENTED NEUTROPHILS % (AUTO) 61.5 % (42-78); WHITE BLOOD COUNT 13.7 10^3/uL (4.0-10.5)
--- NOTE | 2016-06-18 13:35 | EKG REPORT ---
SEVERITY:- OTHERWISE NORMAL ECG - SINUS RHYTHM BORDERLINE RIGHT AXIS DEVIATION : Confirmed by: Darrion Hogue MD 18-Jun-2016 13:35:05
[2016-06-18 13:57] LABS: ALANINE AMINOTRANSFERASE 47 U/L (21-72); ALBUMIN 4.1 g/dL (3.5-5.0); ALKALINE PHOSPHATASE 70 U/L (38-126); ANION GAP 14 (5-19); ASPARTATE AMINO TRANSFERASE 31 U/L (17-59); BILIRUBIN,DIRECT 0.4 mg/dL (0.0-0.4); BILIRUBIN,TOTAL 0.5 mg/dL (0.2-1.3); BLOOD UREA NITROGEN 11 mg/dL (7-20); CALCIUM 9.9 mg/dL (8.4-10.2); CARBON DIOXIDE 25 mmol/L (22-30); CHLORIDE 104 mmol/L (98-107); CREATINE KINASE 50 U/L (55-170); CREATININE RESULT 0.78 mg/dL (0.52-1.25); GLUCOSE 108 mg/dL (75-110); POTASSIUM 4.5 mmol/L (3.6-5.0); SODIUM 142.5 mmol/L (137-145); TOTAL PROTEIN 6.9 g/dL (6.3-8.2)
[2016-06-18 14:16] LABS: TROPONIN I < 0.012 ng/mL
== END 2016-06-18 22:10 | disposition left against medical advice (07) ==
LOC: ER 11:56
DX: R07.9 Chest pain, unspecified (principal); J44.9 Chronic obstructive pulmonary disease, unspecified; G47.30 Sleep apnea, unspecified; E78.5 Hyperlipidemia, unspecified; E66.9 Obesity, unspecified; R05 Cough; R06.02 Shortness of breath; F17.200 Nicotine dependence, unspecified, uncomplicated; Z88.1 Allergy status to other antibiotic agents; Z88.8 Allergy status to other drugs, medicaments and biological substances; Z87.01 Personal history of pneumonia (recurrent); Z53.20 Procedure and treatment not carried out because of patient's decision for unspecified reasons
CPT/HCPCS: 93005; 94640; 99281; 36415; 82553; 82550; 85025; 80053; 84484; 71020; 93010; A9270 ×3; J7512; J7620

== ENCOUNTER 2016-08-30 17:46 | Emergency (ER) | payer OTHER, MEDICARE ==
[2016-08-30] MEDS ORDERED: IPRATROPIUM/ALBUTEROL 0.5-2.5 MG/3 ML AMPUL NEB ONE (17:53)
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
[2016-08-30] MEDS ORDERED: IBUPROFEN 600 MG TABLET PO ONE (18:34)
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
[2016-08-30] MEDS ORDERED: LEVOFLOXACIN 750 MG TABLET PO ONE (19:03)
[2016-08-30 19:21] VITALS: BP 104/62
== END 2016-08-30 19:20 | disposition home or self-care (01) ==
LOC: ER 17:46
DX: S93.491A Sprain of other ligament of right ankle, initial encounter (principal); S16.1XXA Strain of muscle, fascia and tendon at neck level, initial encounter; J18.1 Lobar pneumonia, unspecified organism; M54.2 Cervicalgia; J44.9 Chronic obstructive pulmonary disease, unspecified; M25.571 Pain in right ankle and joints of right foot; R51 Headache; R05 Cough; F17.200 Nicotine dependence, unspecified, uncomplicated; V87.7XXA Person injured in collision between other specified motor vehicles (traffic), initial encounter
CPT/HCPCS: 94640; 99284; 73610; 71010; 70450; 72125; J7620

== ENCOUNTER 2017-01-07 03:55 | Inpatient (IN) | payer MEDICARE, OTHER ==
[2017-01-07] MEDS ORDERED: ASPIRIN 81 MG TABLET, CHEWABLE PO ONE (04:05)
[2017-01-07 04:38] LABS: ABSOLUTE BASOPHILS # (AUTO) 0.2 10^3/uL (0.0-0.2); ABSOLUTE EOSINOPHILS # (AUTO) 0.2 10^3/uL (0.0-0.6); ABSOLUTE LYMPHOCYTES (AUTO) 6.4 10^3/uL (0.5-4.7); ABSOLUTE MONOCYTES (AUTO) 1.3 10^3/uL (0.1-1.4); ABSOLUTE NEUT (AUTO) 6.7 10^3/uL (1.7-8.2); BASOPHILS % (AUTO) 1.2 % (0-2); EOSINOPHILS % (AUTO) 1.3 % (0-6); HEMATOCRIT 45.6 % (37.9-51.0); HEMOGLOBIN 16.1 g/dL (13.5-17.0); HGB HCT DIFFERENCE 2.7; LYMPHOCYTES % (AUTO) 43.1 % (13-45); MEAN CORPUSCULAR HEMOGLOBIN 32.2 pg (27.0-33.4); MEAN CORPUSCULAR HGB CONC 35.2 g/dL (32.0-36.0); MEAN CORPUSCULAR VOLUME 91 fl (80-97); MONOCYTES % (AUTO) 8.9 % (3-13); RED BLOOD COUNT 4.99 10^6/uL (4.35-5.55); RED CELL DISTRIBUTION WIDTH 13.2 % (11.5-14.0); SEGMENTED NEUTROPHILS % (AUTO) 45.5 % (42-78); WHITE BLOOD COUNT 14.8 10^3/uL (4.0-10.5)
[2017-01-07 04:45] LABS: ALANINE AMINOTRANSFERASE 55 U/L (21-72); ALBUMIN 3.9 g/dL (3.5-5.0); ALKALINE PHOSPHATASE 69 U/L (38-126); ANION GAP 13 (5-19); ASPARTATE AMINO TRANSFERASE 34 U/L (17-59); BILIRUBIN,DIRECT 0.3 mg/dL (0.0-0.4); BILIRUBIN,TOTAL 0.3 mg/dL (0.2-1.3); BLOOD UREA NITROGEN 12 mg/dL (7-20); CALCIUM 9.4 mg/dL (8.4-10.2); CARBON DIOXIDE 26 mmol/L (22-30); CHLORIDE 102 mmol/L (98-107); CREATINE KINASE 47 U/L (55-170); CREATININE RESULT 0.76 mg/dL (0.52-1.25); GLUCOSE 109 mg/dL (75-110); POTASSIUM 4.3 mmol/L (3.6-5.0); SODIUM 141.2 mmol/L (137-145); TOTAL PROTEIN 6.6 g/dL (6.3-8.2)
[2017-01-07] MEDS ORDERED: NORMAL SALINE 1000 ML 1,000 ML IV ONE ×2 (04:50→06:50)
[2017-01-07] MEDS ORDERED: IPRATROPIUM/ALBUTEROL 0.5-2.5 MG/3 ML AMPUL NEB ONE ×2 (04:50→06:51)
--- NOTE | 2017-01-07 04:51 | RADIOLOGY REPORT (SQ) ---
EXAM DESCRIPTION: CHEST SINGLE VIEW CLINICAL HISTORY: chest pain COMPARISON: 08/30/2016 FINDINGS: Single frontal view of the chest. Low lung volumes. The cardiomediastinal silhouette has normal size and contour. No consolidation, pneumothorax, or pleural effusion. Minimal bibasilar linear opacities likely representing atelectasis No displaced rib fractures identified. Upper abdominal soft tissues are unremarkable. IMPRESSION: 1. Minimal streaky bibasilar opacities likely related to atelectasis. Low lung volumes.
--- NOTE | 2017-01-07 04:54 | ER Document Report ---
ED Cardiac - General Chief Complaint: Chest Pain Stated Complaint: CHEST PAIN Time Seen by Provider: 01/07/17 04:44 Notes: Patient is a 36-year-old male comes emergency department for chief complaint of chest pain that started at about 5 PM this afternoon, he states pain is constant , sharp, makes him feel nauseated. He comes by EMS, has had 324 mg of aspirin and Nitropaste placed. He states that he smokes, he has a history of COPD, he has high cholesterol which is not treated for. He states he had a clean cardiac catheterization in 2009 which was performed because he was having chest pain with syncopal episodes. He denies history of blood clot, lower extremity swelling, recent travel or surgery. He does not see a supervisor speech. Past medical history of anxiety and PTSD as well. He does see Dr. Spencer. TRAVEL OUTSIDE OF THE [place] IN LAST 30 DAYS: No - Related Data Allergies/Adverse Reactions: erythromycin base [Erythromycin Base] Allergy (Severe, Verified 08/30/16 18:24) Hives lamotrigine [From Lamictal] Allergy (Severe, Verified 08/30/16 18:24) Hives nitroglycerin Allergy (Verified 08/30/16 18:24) Hypotension rhondec Allergy (Severe, Uncoded 08/30/16 18:24) Past Medical History - General Information source: Patient - Social History Smoking Status: Current Every Day Smoker Chew tobacco use (# tins/day): No Frequency of alcohol use: None Drug Abuse: None Lives with: Alone Family History: CAD, Hyperlipidemia, Hypertension Patient has suicidal ideation: No Patient has homicidal ideation: No - Past Medical History Cardiac Medical History: Reports: Hx Hypercholesterolemia Denies: Hx Coronary Artery Disease, Hx Heart Attack, Hx Hypertension Pulmonary Medical History: Reports: Hx Asthma - LAST ATTACK 08/02/15, Hx Pneumonia - 10/02, Hx Sleep Apnea Denies: Hx Bronchitis, Hx COPD, Hx Tuberculosis Neurological Medical History: Reports: Hx Migraine. 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 - Immunizations Hx Diphtheria, Pertussis, Tetanus Vaccination: Yes Hx Pneumococcal Vaccination: 10/26/12 Review of Systems - Review of Systems Constitutional: No symptoms reported EENT: No symptoms reported Cardiovascular: See HPI Respiratory: See HPI Gastrointestinal: No symptoms reported Genitourinary: No symptoms reported Male Genitourinary: No symptoms reported Musculoskeletal: No symptoms reported Skin: No symptoms reported Hematologic/Lymphatic: No symptoms reported Neurological/Psychological: No symptoms reported Physical Exam - Vital signs Vitals: Resp Pulse Ox 15 94 01/07/17 04:08 01/07/17 04:08 Interpretation: Normal - General General appearance: Alert, Anxious In distress: Mild - Patient appears nervous, agitated, has mild tachypnea - HEENT Head: Normocephalic, Atraumatic Eyes: Normal Pupils: PERRL - Respiratory Respiratory status: Tachypnea. No: Labored Chest status: Nontender. No: Tender Breath sounds: Decreased air movement, Wheezing Chest palpation: Normal - Cardiovascular Rhythm: Regular Heart sounds: Normal auscultation Murmur: No - Abdominal Inspection: Normal Distension: No distension Bowel sounds: Normal Tenderness: Nontender. No: Tender, Guarding Organomegaly: No organomegaly - Back Back: Normal, Nontender - Extremities General upper extremity: Normal inspection, Nontender, Normal color, Normal ROM , Normal temperature General lower extremity: Normal inspection, Nontender, Normal color, Normal ROM , Normal temperature, Normal weight bearing. No: David's sign - Neurological Neuro grossly intact: Yes Cognition: Normal Orientation: AAOx4 Lance Coma Scale Eye Opening: Spontaneous [place] Coma Scale Verbal: Oriented [place] Coma Scale Motor: Obeys Commands Lance Coma Scale Total: 15 Speech: Normal Motor strength normal: LUE, RUE, LLE, RLE Sensory: Normal - Psychological Associated symptoms: Anxious - Skin Skin Temperature: Warm Skin Moisture: Dry Skin Color: Normal Course - Re-evaluation Re-evalutation: Patient reporting he has chest pain, he reports minimal shortness of breath, he has decreased breath sounds, some wheezing. He is requesting pain medication. Patient becomes hypoxic in the 80s on room air, placed on 3 L nasal cannula with good improvement into the low to mid 90s. Patient is not tachycardic. No lower extremity edema. Patient became hypotensive, Nitropaste was removed which was placed by EMS, he was given bolus IV fluids. Blood pressure improved and then normalized. Patient was given 0.5 mg of Ativan for anxiety. Patient stating that he has a lot of pain in his chest. EKG without significant change from prior, chest x- ray unremarkable, troponin normal, CBC, chemistry unremarkable. Because of ongoing complaints of chest pain along with hypoxia CTA was performed. This shows improvement from prior, no pneumonia, no PE, no dissection. Patient is being treated for COPD exacerbation, I suspect this is the source of his hypoxia. Discussed with Dr. Roman. Recheck manual blood pressure because his arm and cuff are giving erratic readings, blood pressure is 114/80s. 01/07/17 08:[address] Adam, hospitalist, patient will be admitted to the hospital. - Vital Signs Vital signs: Temp Pulse Resp BP Pulse Ox 18 95/53 L 89 L 01/07/17 06:08 01/07/17 06:08 01/07/17 06:08 - Laboratory Result Diagrams: 01/07/17 04:15 01/07/17 04:15 Laboratory results interpreted by me: 01/07/17 01/07/17 04:15 04:15 WBC 14.8 H Absolute Lymphocytes 6.4 H Creatine Kinase 47 L Discharge - Discharge Clinical Impression: COPD exacerbation, Hypoxia Condition: Stable Disposition: ADMITTED INPATIENT Admitting Provider: Hospitalist Unit Admitted: Telemetry Referrals: POOL SPENCER MD [Primary Care Provider] - Follow up as needed
[2017-01-07 04:57] LABS: CREATINE KINASE MB 0.51 ng/mL (<4.55)
[2017-01-07 05:00] LABS: TROPONIN I < 0.012 ng/mL
[2017-01-07] MEDS ORDERED: LORAZEPAM INJ 2 MG/1 ML VIAL IV ONE (05:45)
[2017-01-07] MEDS ORDERED: METHYLPREDNISOLONE INJ 125 MG/2 ML SDV IV ONE (06:51)
--- NOTE | 2017-01-07 06:55 | RADIOLOGY REPORT (SQ) ---
EXAM DESCRIPTION: CTA of the chest per PE protocol with contrast. CLINICAL HISTORY: chest pain, hypoxia COMPARISON: 04/15/2016 TECHNIQUE: CTA of the chest obtained following the uncomplicated intravenous administration of 75.9 mL of Isovue-370. 3-D/MIP reformatted images of the chest available for evaluation. FINDINGS: Chest: Mediastinal windows demonstrate an adequate contrast bolus. No pulmonary embolus identified. Visualized thyroid gland is unremarkable. Great vessels have normal anatomic configuration. No cardiomegaly, coronary artery atherosclerosis, or pericardial effusion. No abnormalities of the esophagus. Scattered mediastinal lymph nodes are not enlarged by CT criteria. Lung windows demonstrate no consolidation, pneumothorax, or pleural effusion. No abnormalities of the visualized trachea or airways. 5 mm indeterminate groundglass pulmonary nodule involving the right lower lobe best seen on image #37. Based on Fleischner criteria guidelines no follow-up required. Limited images of the upper abdomen demonstrate no abnormalities of the visualized liver, spleen, pancreas, adrenal glands, or kidneys. Prior cholecystectomy. No destructive osseous lesions. DLP: 646.60 mGycm IMPRESSION: 1. No pulmonary embolism identified. This exam was performed according to our departmental dose-optimization program, which includes automated exposure control, adjustment of the mA and/or kV according to patient size and/or use of iterative reconstruction technique.
[2017-01-07] MEDS ORDERED: MAGNESIUM SULFATE/D5W 1 GM/100 ML RTUPB IV PRN (07:08)
[2017-01-07 07:49] LABS: URINE BARBITURATES SCREEN NEGATIVE; URINE METHADONE SCREEN NEGATIVE; URINE OPIATES LOW UNCONFIRMED POSITIVE; URINE PHENCYCLIDINE SCREEN NEGATIVE
[2017-01-07 07:55] LABS: VENOUS BLOOD BASE EXCESS 1.5 mmol/L; VENOUS BLOOD HCO3 28.3 mmol/L (20-32); VENOUS BLOOD PCO2 50.9 mmHg (35-63); VENOUS BLOOD PH 7.36 (7.30-7.42)
[2017-01-07] MEDS ORDERED: ONDANSETRON HCL INJ/PF 4 MG/2 ML SDV IV PRN (08:45)
[2017-01-07] MEDS ORDERED: IPRATROPIUM/ALBUTEROL 0.5-2.5 MG/3 ML AMPUL NEB PRN (08:45)
[2017-01-07] MEDS ORDERED: ACETAMINOPHEN 325 MG TABLET PO PRN (08:45)
[2017-01-07] MEDS ORDERED: OXYCODONE-ACETAMINOPHEN 5-325 MG TABLET PO PRN (08:45)
--- NOTE | 2017-01-07 09:15 | PDOC H&P ---
History of Present Illness Admission Date/PCP: 01/07/17 08:19 POOL TOVAR MD Patient complains of: Shortness of breath and chest pain History of Present Illness: ANNA ELLIS is a 36 year old male presents to the ER with complaint of chest pain. Pt states that chest pain radiates into left arm and neck. Pt states that chest pain began yesterday afternoon. Pt states that he had a cardiac cath 2009 which was negative. Pt states that he has cardiac stress test on 2012 which was negative. Pt reports that he smokes 2/3 of a pack of cigarettes for greater than 10 years. 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 Hematology: Reports: Anemia - A CHILD Past Surgical History Past Surgical History: Reports: Cardiac Catheterization - dx with "cardiac spasms" 2009, Cholecystectomy Social History Lives with: Alone Smoking Status: Current Every Day Smoker Frequency of Alcohol Use: None Hx Recreational Drug Use: No Hx Prescription Drug Abuse: No - Advance Directive Resuscitation Status: Full Code Family History Family History: CAD, Hyperlipidemia, Hypertension Parental Family History Reviewed: Yes Children Family History Reviewed: Yes Sibling(s) Family History Reviewed.: Yes Medication/Allergy Home Medications: Albuterol Sulfate [Proair HFA] 1 puff PO Q4HP PRN 04/15/16 Alprazolam [Xanax] 2 mg PO BID 04/15/16 Aripiprazole [Abilify 30 mg Tablet] 30 mg PO DAILY 04/15/16 Atorvastatin Calcium [Lipitor 40 mg Tablet] 40 mg PO QHS 04/15/16 Divalproex Sodium [Divalproex Sodium ER] 1,000 mg PO BID 04/15/16 Mirtazapine [Remeron] 45 mg PO QHS 04/15/16 Omeprazole 40 mg PO DAILY 04/15/16 Paroxetine HCl [Paxil] 10 mg PO DAILY 04/15/16 Paroxetine HCl [Paxil] 40 mg PO DAILY 04/15/16 Suvorexant [Belsomra] 20 mg PO QHS 04/15/16 Trazodone HCl [Desyrel] 100 mg PO QHS 04/15/16 Doxycycline Hyclate [Vibramycin] 100 mg PO BID #16 capsule 04/16/16 Prednisone [Deltasone 10 mg Tablet] 10 mg PO ASDIR PRN #21 tablet 04/16/16 Hydrocodone/Acetaminophen [[place] 5-325 mg Tablet] 1 tab PO Q6H PRN #10 tablet Levofloxacin [Levaquin 750 mg Tablet] 750 mg PO DAILY #5 tablet 08/30/16 Naproxen [Naprosyn 250 mg Tablet] 500 mg PO Q12H PRN #30 tablet 08/30/16 Allergies/Adverse Reactions: erythromycin base [Erythromycin Base] Allergy (Severe, Verified 08/30/16 18:24) Hives lamotrigine [From Lamictal] Allergy (Severe, Verified 08/30/16 18:24) Hives nitroglycerin Allergy (Verified 08/30/16 18:24) Hypotension rhondec Allergy (Severe, Uncoded 08/30/16 18:24) Review of Systems Constitutional: ABSENT: chills, fever(s), headache(s), weight gain, weight loss Eyes: ABSENT: visual disturbances Ears: ABSENT: hearing changes Cardiovascular: PRESENT: chest pain Respiratory: PRESENT: cough, dyspnea Gastrointestinal: ABSENT: abdominal pain, constipation, diarrhea, hematemesis, hematochezia, nausea, vomiting Genitourinary: ABSENT: dysuria, hematuria Musculoskeletal: ABSENT: joint swelling Integumentary: ABSENT: rash, wounds Neurological: ABSENT: abnormal gait, abnormal speech, confusion, dizziness, focal weakness, syncope Psychiatric: ABSENT: anxiety, depression, homidical ideation, suicidal ideation Endocrine: ABSENT: cold intolerance, heat intolerance, polydipsia, polyuria Hematologic/Lymphatic: ABSENT: easy bleeding, easy bruising Physical Exam Vital Signs: Temp Pulse Resp BP Pulse Ox 18 95/53 L 89 L 01/07/17 06:08 01/07/17 06:08 01/07/17 06:08 Intake & Output 01/06/17 01/07/17 01/08/17 06:59 06:59 06:59 Weight 138.4 kg General appearance: PRESENT: mild distress, morbidly obese Head exam: PRESENT: atraumatic, normocephalic Eye exam: PRESENT: conjunctiva pink, EOMI. ABSENT: scleral icterus Ear exam: PRESENT: normal external ear exam Mouth exam: PRESENT: moist, tongue midline Neck exam: ABSENT: carotid bruit, JVD, lymphadenopathy, thyromegaly Respiratory exam: PRESENT: decreased breath sounds - at bases, prolonged expiratory phas, wheezes - scant in all lung joiner Cardiovascular exam: PRESENT: RRR. ABSENT: diastolic murmur, rubs, systolic murmur Pulses: PRESENT: normal dorsalis pedis pul Vascular exam: PRESENT: normal capillary refill GI/Abdominal exam: PRESENT: normal bowel sounds, soft. ABSENT: distended, guarding, mass, organolmegaly, rebound, tenderness Rectal exam: PRESENT: deferred Extremities exam: PRESENT: full ROM. ABSENT: calf tenderness, clubbing, pedal edema Neurological exam: PRESENT: alert, awake, oriented to person, oriented to place , oriented to time, oriented to situation, CN II-XII grossly intact. ABSENT: motor sensory deficit Psychiatric exam: PRESENT: flat affect. ABSENT: homicidal ideation, suicidal ideation Skin exam: PRESENT: dry, intact, warm. ABSENT: cyanosis, rash Results Impressions: Chest X-Ray 01/07/17 04:05 IMPRESSION: 1. Minimal streaky bibasilar opacities likely related to atelectasis. Low lung volumes. Chest/Abdomen CTA 01/07/17 06:07 IMPRESSION: 1. No pulmonary embolism identified. This exam was performed according to our departmental dose-optimization program, which includes automated exposure control, adjustment of the mA and/or kV according to patient size and/or use of iterative reconstruction technique. Assessment & Plan - Diagnosis (1) Acute hypoxemic respiratory failure Is this a current diagnosis for this admission?: Yes Plan: Most likely secondary to undiagnosed Asthma: Will place on steroids, breathing treatments, and antibiotics. (2) Asthma Qualifiers: Asthma persistence: unspecified Asthma complication type: with acute exacerbation Is this a current diagnosis for this admission?: Yes Plan: Will place on Steroids, breathing treatments, and antibiotics. (3) Chest pain Is this a current diagnosis for this admission?: Yes Plan: Will check troponins and EKG. Will consult Cardiology. Will check Echo. Will check Lipid profile and HBGA1C. (4) Tobacco abuse Is this a current diagnosis for this admission?: Yes Plan: Encourage stop smoking. Will place Nicotine patch. (5) GERD (gastroesophageal reflux disease) Qualifiers: Esophagitis presence: without esophagitis Qualified Code(s): K21.9 - Gastro -esophageal reflux disease without esophagitis Is this a current diagnosis for this admission?: Yes Plan: PPI (6) Bipolar disorder Is this a current diagnosis for this admission?: Yes Plan: Will continue home medications. (7) Obstructive sleep apnea Is this a current diagnosis for this admission?: Yes Plan: pt is noncomplaint with CPAP. Supportive Care. NC. (8) PTSD (post-traumatic stress disorder) Is this a current diagnosis for this admission?: Yes Plan: Will continue home medications. (9) DVT prophylaxis Is this a current diagnosis for this admission?: Yes Plan: SCDs - Time Time Spent: 30 to 50 Minutes Anticipated discharge: Home
[2017-01-07] MEDS: NICOTINE 21 MG/24 HR PATCH.TD24 TD SCH (10:37)
[2017-01-07] MEDS: DOXYCYCLINE HYCLATE 100 MG in DEXTROSE 5%-WATER 250 ML IV SCH ×2 (10:38→21:06)
[2017-01-07] MEDS: IPRATROPIUM/ALBUTEROL 0.5-2.5 MG/3 ML AMPUL NEB SCH ×2 (14:14→20:31)
[2017-01-07] MEDS: METHYLPREDNISOLONE INJ 40 MG/1 ML SDV IV SCH ×2 (14:19→21:06)
--- NOTE | 2017-01-07 16:56 | EKG REPORT ---
SEVERITY:- NORMAL ECG - SINUS RHYTHM : Confirmed by: Tae Vale 07-Jan-2017 16:56:16
[2017-01-07] MEDS ORDERED: TRAZODONE HCL 50 MG TABLET PO SCH ×2 (22:00)
[2017-01-07] MEDS ORDERED: (PENDING PHARMACY ID) (Trazodone Hcl [Desyrel] 300 MG) PO SCH (22:00)
[2017-01-07] MEDS ORDERED: (PENDING PHARMACY ID) (Olanzapine [Zyprexa] 10 MG) PO SCH (22:00)
[2017-01-07] MEDS ORDERED: OLANZAPINE 5 MG TABLET PO SCH (22:00)
[2017-01-08 03:00] LABS: ABSOLUTE BASOPHILS # (AUTO) 0.1 10^3/uL (0.0-0.2); ABSOLUTE LYMPHOCYTES (AUTO) 2.4 10^3/uL (0.5-4.7); ABSOLUTE MONOCYTES (AUTO) 0.8 10^3/uL (0.1-1.4); ABSOLUTE NEUT (AUTO) 15.2 10^3/uL (1.7-8.2); BASOPHILS % (AUTO) 0.8 % (0-2); HEMATOCRIT 47.3 % (37.9-51.0); HEMOGLOBIN 16.1 g/dL (13.5-17.0); MEAN CORPUSCULAR VOLUME 91 fl (80-97); MONOCYTES % (AUTO) 4.2 % (3-13); RED BLOOD COUNT 5.17 10^6/uL (4.35-5.55); RED CELL DISTRIBUTION WIDTH 13.2 % (11.5-14.0); WHITE BLOOD COUNT 18.6 10^3/uL (4.0-10.5)
[2017-01-08] MEDS: IPRATROPIUM/ALBUTEROL 0.5-2.5 MG/3 ML AMPUL NEB SCH ×2 (03:00→08:44)
[2017-01-08 03:46] LABS: ALANINE AMINOTRANSFERASE 51 U/L (21-72); ALBUMIN 4.1 g/dL (3.5-5.0); ALKALINE PHOSPHATASE 62 U/L (38-126); ANION GAP 12 (5-19); ASPARTATE AMINO TRANSFERASE 24 U/L (17-59); BILIRUBIN,DIRECT 0.4 mg/dL (0.0-0.4); BILIRUBIN,TOTAL 0.5 mg/dL (0.2-1.3); BLOOD UREA NITROGEN 11 mg/dL (7-20); CALCIUM 10.4 mg/dL (8.4-10.2); CARBON DIOXIDE 23 mmol/L (22-30); CHLORIDE 107 mmol/L (98-107); CREATININE RESULT 0.63 mg/dL (0.52-1.25); Direct HDL 34 mg/dL (>40); GLUCOSE 155 mg/dL (75-110); POTASSIUM 4.9 mmol/L (3.6-5.0); SODIUM 142.2 mmol/L (137-145); TOTAL PROTEIN 6.9 g/dL (6.3-8.2); TRIGLYCERIDES 170 mg/dL (<150)
[2017-01-08 03:57] LABS: DIRECT LDL 210 mg/dL (<100)
[2017-01-08 05:37] LABS: THYROID STIMULATING HORMONE 0.56 uIU/mL (0.47-4.68)
[2017-01-08] MEDS ORDERED: LANSOPRAZOLE 15 MG TAB.RAP.DR PO SCH (06:00)
[2017-01-08] MEDS: METHYLPREDNISOLONE INJ 40 MG/1 ML SDV IV SCH ×2 (06:34→13:27)
[2017-01-08] MEDS: DOXYCYCLINE HYCLATE 100 MG in DEXTROSE 5%-WATER 250 ML IV SCH (09:46)
[2017-01-08] MEDS: NICOTINE 21 MG/24 HR PATCH.TD24 TD SCH (09:47)
--- NOTE | 2017-01-08 09:56 | CONSULTATION REPORT E ---
Consultation Report NAME: ANNA ELLIS : 1980 AGE: 36Y DATE: 01/07/2017 415 A TO: INO GONSALES M.D. FROM: ALEX AHMADI M.D. Requesting Physician DATE OF CONSULTATION: 01/07/2017 The patient was seen at 12:45 p.m., and 40 minutes spent on this patient. HISTORY OF PRESENT ILLNESS: Patient is a 36-year-old male who came to the emergency room complaining that on 01/06 at 3:30 when he was watching a [employer] game, he developed chest pain in the center of his chest with radiation to the left shoulder. It was continuous. It did not increase with exertion. Nothing made it feel better, and there was no chest tenderness. If he coughed or moved his torso, it did not hurt. The patient has multiple complaints of chest pains and multiple admissions for that. He also states that he has had some wheezing and some shortness of breath. He does have a history of COPD and is a smoker. He denies any cough or sputum production. He denies any PND or orthopnea. He has a history of sleep apnea but does not use CPAP because he cannot afford it. PAST MEDICAL HISTORY: Positive for hyperlipidemia. He denies any myocardial infarction, coronary artery disease, or hypertension. He has a history of asthma and COPD, and the patient smokes. Last attack of asthma was 08/2015. He has also had pneumonia in 09/2014. He also has a history of migraine, and there is no history of TIA or CVA. He has a history of bipolar disorder, depression, and posttraumatic stress disorder. He says that when he was a child he had anemia. He also has a history of diabetes mellitus which is borderline, and he states it is diet controlled. He denies any history of hypertension. There is no history of TIA or CVA. There are no seizures. The patient states he had a cardiac cath in 2009 and this showed that he had cardiac spasms. He also had a stress test in 2012 was negative. PAST SURGICAL HISTORY: Positive for cardiac catheterization with a diagnosis of cardiac spasm in 2009, cholecystectomy, and he has had parathyroidectomy, prior hypercalcemia which is controlled now. SOCIAL HISTORY: The patient currently smokes. There is no alcohol abuse. CODE STATUS: He states that he is a FULL CODE, and his mother and father are his surrogate healthcare decision makers. ALLERGIES: He is allergic to NITROGLYCERIN which drops his blood pressure. He is allergic to ERYTHROMYCIN, LAMOTRIGINE, , and NITROGLYCERIN. NITROGLYCERIN he states drops his blood pressure very low. MEDICATIONS: 1. Tylenol 650 mg p.o. q.4 hours p.r.n. 2. Aspirin 324 mg p.o. x1. 3. He is on ipratropium/albuterol sulfate 3 mL nebulizer x1 q.4 hours p.r.n. 4. He is also on doxycycline 100 mg IV q.12 hours. 5. He is on normal saline. He did get normal saline bolus in the emergency room. 6. He is on Prevacid 15 mg p.o. q.6 a.m. 7. He is on lorazepam 0.5 mg IV x1. 8. He is on methylprednisolone 125 mg IV x1 and 40 mg IV q.8 hours. 9. He is on NicoDerm patch 21 mg to the chest wall daily. 10. He is on Zyprexa 10 mg p.o. nightly. 11. He is on Zofran 4 mg IV q.6 hours p.r.n. 12. He is on oxycodone/acetaminophen 1 tablet p.o. q.6 hours p.r.n. 13. He is on trazodone 300 mg p.o. nightly. FAMILY HISTORY: He states that his father of a heart attack at age 65. There is also hyperlipidemia and hypertension in the family. REVIEW OF SYSTEMS: CONSTITUTIONAL: Denies fever, chills, or rigors. Complains of generalized fatigue and weakness. HEAD: Denies head injury. History of migraines but none recently. EYES: No history of amblyopia or diplopia. No history of amaurosis fugax. EARS: No history of tinnitus. No history of hearing loss. No history of recurrent ear infections. NOSE: No history of nosebleeds. No history of hay fever. No history of nasal polyps. MOUTH: No history of altered taste sensation. No ulcers in the mouth. and no bleeding from the gums. THROAT: No redness of the oropharynx, and no odynophagia or dysphagia. No history of recurrent sore throat. SKIN: No history of petechia or ecchymosis. No history of skin rashes or skin lesions. NECK: No neck pain. No enlarged neck veins or lymph nodes. No goiter. LUNGS: He does have history of sleep apnea, does not use CPAP. He has a history of asthma and COPD. He continues to smoke. This morning, he had shortness of breath with wheezing. CARDIAC: Denies hypertension. Denies prior history of NM. He was told he had cardiac spasms after cath when he had chest pain in 2009. He had a negative stress test in 2012. There is no arrhythmia. There is no PND or orthopnea. There is no leg edema. ABDOMEN: Denies any belly pain or jaundice or fatty food intolerance, and no GI bleed. No altered bowel movements. No history of hepatitis or cirrhosis. MUSCULOSKELETAL: Denies arthritis or collagen vascular disease. RENAL: No history of chronic kidney disease. No symptoms of UTI. No history of hematuria, pyuria, or dysuria. ENDOCRINE: History of diabetes mellitus which is diet controlled. No history of thyroid disease. History of parathyroidectomy in the past. CENTRAL NERVOUS SYSTEM: No history of TIA or CVA. History of migraines. No history of seizures. No history of gait imbalance. PSYCHIATRIC: History of bipolar disorder, history of PTSD, and history of depression. VASCULAR: No history of calf or buttock claudication. No history of peripheral vascular disease. No history of DVT. HEMATOLOGICAL: He states when he was a child he had anemia but none now. There is no bleeding diathesis or clotting disorders. PHYSICAL EXAMINATION: GENERAL: The patient is morbidly obese but well groomed. Although he states that he has chest pain, he does not look to be in much distress. VITAL SIGNS: The patient is afebrile with a temperature of 98 degrees Fahrenheit, pulse of 70 beats per minute, blood pressure is 110/60, respirations are 18 per minute, O2 sats are 93% on 2.5 L nasal cannula. HEAD: Atraumatic, normocephalic. EYES: Pupils are equal, round, regular, reactive to light and accommodation. Extraocular movements are normal. EARS: Tympanic membranes are intact. External auditory canals are clear. There are no lesions of the pinna. NOSE: There is no deviated nasal septum. There is no inflammation of the nasal mucous membranes. There are no nasal polyps. MOUTH: Mucous membranes of the mouth are moist. Tongue is moist. There are no ulcers. There is no bleeding from the gums. THROAT: There is no redness of the oropharynx. There is no exudate of the throat. SKIN: There are no skin rashes. There is no petechia or ecchymosis. There are no skin lesions. NECK: Supple. There is no JVD. Carotids are equal. There is no bruit. There is no lymphadenopathy. There is no goiter. Trachea central. LUNGS: Show a few rhonchi in the bases. There is diminished air entry and prolonged expiration. There is no chest wall tenderness. HEART: S1, S2 heard. There is no S3 gallop. There is no S4 gallop. There is systolic murmur at left sternal border in the apex. There is no rub. ABDOMEN: Soft, nontender. There is no hepatosplenomegaly. Bowel sounds are well heard. Abdomen is obese. EXTREMITIES: Femorals are deep. Femorals are diminished. Leg pulses are diminished. There is no pedal edema. There is no cyanosis or clubbing. There is no DVT or cellulitis. There is no calf tenderness. CENTRAL NERVOUS SYSTEM: The patient is conscious, awake, alert, oriented x3 with no focal deficit. PSYCHIATRIC: The patient does appear to be slightly depressed, but he is not agitated. DIAGNOSTIC DATA: The patient's EKG done earlier this morning was within normal limits. Second EKG repeated, which I reviewed later on, shows that the 2nd EKG is also normal. His chest/abdomen CTA shows no pulmonary emboli identified. There is no consolidation, pneumothorax, or pleural effusion. The patient's chest x-ray shows streaky paresthesias . The white count is 14,800, hemoglobin 16.1, hematocrit is 45.6, and the platelet count is 224,000. The patient's sodium is 141.2, potassium is 4.3, and his chloride is 102. CO2 is 26. The patient's BUN is 12, creatinine 0.76, GFR is greater than 60, glucose is 109, calcium is 9.4, and his liver function tests are normal. His total protein is 6.6 and albumin is 3.9. His 2 cardiac enzymes have been negative with the troponin being less than 0.12. The patient's urine opiate screen is and positive. His urine screen is negative. His urine barbiturate screen is negative. His urine screen is negative. His urine screen is negative. His urine and diazepam screen is positive. His urine cocaine screen is negative. His urine screen is negative. The patient's 24-hour intake was 940 mL, output is 2325 mL. IMPRESSION: 1. Chest pain, prolonged with negative EKG and negative cardiac enzymes, ? etiology. 2. History of multiple admissions for chest pains. 3. Acute hypoxemic respiratory failure most likely secondary to COPD exacerbation/asthma and bronchitis. 4. Asthma. 5. Bronchitis. 6. Tobacco abuse. 7. GERD. 8. Bipolar disorder. 9. Obstructive sleep apnea, does not use CPAP. 10. Posttraumatic stress disorder. RECOMMENDATIONS: In view of the patient's allergy to nitroglycerin, would not use it. Would continue the patient's respiratory treatments, antibiotics, and prednisone and continue his psych medications. Would recommend when the patient's chest pain resolves that the patient should have an Cardiolite stress test. Note that the patient is morbidly obese. This has been discussed with the hospitalist. Note 40 minutes spent on this patient, more than 50% of the time spent in direct patient care and also review of the patient's medications. Note that the patient's medical decision making in this patient's case was highly complex. In spite of a normal EKG and negative troponin I x2, the patient continues to have chest pain. Dr. Vale will follow the patient in the a.m. The patient has been asked to wear CPAP and also the patient is being counseled to stop smoking. DICTATING PHYSICIAN: INO GONSALES M.D. [id number] PHY#: [id number] ID: [id number] JOB#: [id number] ACCT: [id number] cc:INO GONSALES M.D.
[2017-01-08] MEDS ORDERED: INFLUENZA ADLT QUAD (36MOS+) 2017-18 VAC 0.5 ML SYR IM PRN (13:22)
[2017-01-08 13:41] VITALS: BP 110/60
--- NOTE | 2017-01-08 13:44 | Physician Advisory Note ---
Physician Advisor ProgressNote .: Pursuant to the plan for Suly Walker, I have reviewed the medical record for this patient. Physician Advisor Statement: Please consider documenting, if you agree: 1. "Acute bronchitis", or what is being tx'd with doxycycline, since asthma/ COPD exac.s don't always require abx 2. Most likely cause of acute CP Status: Appropriate for Inpt status given ongoing hypoxemia/need for O2 acutely this admission, current O2 sats only 93% despite 3L O2 while awake, not safe for d/c after just 1 MN of hospitalization. Support for dx: Acute Hypoxemic Respiratory Failure is evidenced by O2 sats in 80s in ED on RA with tachypnea & SOB @rest in triage, mild distress noted on H&P. CK
--- NOTE | 2017-01-08 13:45 | PDOC PROGRESS REPORT ---
Subjective Progress Note for:: 01/08/17 Subjective:: Patient seems to be doing better with gradual improvement. Pt is denying any chest arm or neck discomfort. Patient denying any PND, orthopnea. Patient denied any sustained palpitations, dizziness, syncope, near syncope. Patient denying any fever chills. Patient denying any other significant discomfort. Patient is maintaining sinus rhythm. Review of systems: Rest review of systems negative. Medications: Medications have been reviewed. Physical Exam Vital Signs: Temp Pulse Resp BP Pulse Ox 97.8 F 81 20 139/69 H 93 01/08/17 12:38 01/08/17 12:38 01/08/17 12:38 01/08/17 12:38 01/08/17 12:38 Intake & Output 01/07/17 01/08/17 01/09/17 06:59 06:59 06:59 Intake Total 2090 Output Total 3725 Balance -1635 Weight 138.9 kg Exam: GENERAL: well-nourished and in no acute distress. Alert and oriented x3 HEAD: Atraumatic, normocephalic. EYES: Pupils equal round and reactive to light, extraocular movements intact, sclera anicteric, conjunctiva are normal. ENT: TMs normal, nares patent, oropharynx clear without exudates. Moist mucous membranes. No oral ulcerations or bleeding gums noted NECK: supple without lymphadenopathy. Trachea is central. No cervical or axillary lymphadenopathy noted. Carotids are 2+, JVD WNL LUNGS: Respiration seems nonlabored, no significant accessory muscle action noted. Breath sounds clear to auscultation bilaterally and equal noted. No wheezes rales or rhonchi noted. No significant dullness noted on percussion. CHEST: Palpation of the chest wall shows no significant chest wall tenderness. No other significant abnormalities noted. HEART: [place] [employer], No PSH, 1/6 SHERYL aortic area, 1/6 alicea systolic murmur mitral area, no rubs, no gallops. ABDOMEN: Soft, no significant tenderness appreciated, normoactive bowel sounds. No guarding, no rebound. No rigidity noted . No masses appreciated. EXTREMITIES: Pedal pulses are 1-2+, no calf tenderness noted. No clubbing or cyanosis.trace to 1+ pedal edema noted NEUROLOGICAL: Focused neurological exam showed no significant neurologic deficit. Normal speech, no focal weakness appreciated. PSYCH: Normal mood, normal affect. Judgment and insight within normal limits. SKIN: No significant ecchymosis, rash, ulcerations or signs of pruritus noted. MUSCULOSKELETAL EXAM: No significant joint swelling noted. Results Laboratory Results: 01/08/17 02:50 01/08/17 02:50 01/08/17 01/08/17 01/08/17 02:50 02:50 02:50 WBC 18.6 H RBC 5.17 Hgb 16.1 Hct 47.3 MCV 91 MCH 31.0 MCHC 34.0 RDW 13.2 Plt Count 250 Seg Neutrophils % 82.0 H Lymphocytes % 13.0 Monocytes % 4.2 Eosinophils % 0.0 Basophils % 0.8 Absolute Neutrophils 15.2 H Absolute Lymphocytes 2.4 Absolute Monocytes 0.8 Absolute Eosinophils 0.0 Absolute Basophils 0.1 Sodium 142.2 Potassium 4.9 Chloride 107 Carbon Dioxide 23 Anion Gap 12 BUN 11 Creatinine 0.63 Est GFR ( Amer) > 60 Est GFR (Non-Af Amer) > 60 Glucose 155 H Calcium 10.4 H Total Bilirubin 0.5 AST 24 ALT 51 Alkaline Phosphatase 62 Total Protein 6.9 Albumin 4.1 Triglycerides 170 H Cholesterol 246.30 H LDL Cholesterol Direct 210 H VLDL Cholesterol 34.0 H HDL Cholesterol 34 L TSH 0.56 Free T4 0.77 L 01/07/17 01/07/17 01/07/17 08:45 15:47 15:47 Creatine Kinase 68 Troponin I < 0.012 < 0.012 01/07/17 01/07/17 01/08/17 20:45 20:45 02:50 Creatine Kinase 70 59 Troponin I < 0.012 01/08/17 02:50 Creatine Kinase Troponin I < 0.012 EKG Comments: Shows sinus rhythm, no sustained tachycardia or bradycardia arrhythmias noted. Yesterday's EKG is reviewed. No significant ST-T wave changes noted. 2D echo preliminary report shows normal LVEF. Impressions: Chest X-Ray 01/07/17 04:05 IMPRESSION: 1. Minimal streaky bibasilar opacities likely related to atelectasis. Low lung volumes. Chest/Abdomen CTA 01/07/17 06:07 IMPRESSION: 1. No pulmonary embolism identified. This exam was performed according to our departmental dose-optimization program, which includes automated exposure control, adjustment of the mA and/or kV according to patient size and/or use of iterative reconstruction technique. Assessment & Plan - Diagnosis (1) Chest pain Qualifiers: Chest pain type: unspecified Qualified Code(s): R07.9 - Chest pain, unspecified Is this a current diagnosis for this admission?: Yes (2) GERD (gastroesophageal reflux disease) Qualifiers: Esophagitis presence: without esophagitis Qualified Code(s): K21.9 - Gastro -esophageal reflux disease without esophagitis Is this a current diagnosis for this admission?: Yes (3) Morbid obesity with BMI of 50.0-59.9, adult Is this a current diagnosis for this admission?: Yes (4) Hyperlipidemia Qualifiers: Hyperlipidemia type: unspecified Qualified Code(s): E78.5 - Hyperlipidemia , unspecified Is this a current diagnosis for this admission?: Yes (5) Obstructive sleep apnea Is this a current diagnosis for this admission?: Yes - Notes Notes: Chest pain: Patient's EKGs has been WNL. Cardiac enzymes have been negative. Patient will benefit from a nuclear stress test. This I believe can be performed as an outpatient especially if he remains chest pain-free. Gastroesophageal reflux disease: Believe this could be the cause of patient's chest pain. Agree with proton pump inhibitor therapy. Dyslipidemia: Patient has severely elevated LDL. Recommend potency high potency statin therapy. Patient will also benefit from dietary restrictions. Morbid obesity: Patient has been encouraged in weight loss. Patient would be a good candidate for gastric sleeve surgery etc. However this can be performed as an outpatient. Obstructive sleep apnea: Patient describes previous diagnosis of it but currently not on CPAP therapy. I will be happy to requalify patient. He understands he needs to use it. - Time Time with patient: Greater than 35 minutes - CODE STATUS was discussed, patient remains full code. Surrogate decision-maker patient's parents. Multiple medical problems were addressed. More than 50% of the time spent coordinating care, discussing management plans with involved caregivers. Management plans discussed with involved personnels. Medical decision making was of moderate to high complexity, patient's has multiple comorbidities. Medications reviewed and adjusted accordingly: Yes
--- NOTE | 2017-01-08 19:35 | XCELERA REPORT ---
[address] [address] Transthoracic Echocardiogram Report Name: ANNA ELLIS Age: 36 yrs Gender: Male : 1980 Patient Status: Inpatient Patient Location: [address] [place], [place] [address] Study Date: 01/08/2017 10:13 AM Height: 66 in Weight: 305 lb BSA: 2.4 m2 Procedure: A complete two-dimensional transthoracic echocardiogram was performed (2D, M-mode, spectral and color flow Doppler). The study was technically difficult with many images being suboptimal in quality. Reason For Study: chest pain Ordering Physician: ALEX AHMADI Performed By: Nereyda Land Interpretation Summary The study was technically difficult with many images being suboptimal in quality. The left ventricular ejection fraction is normal. LV diastolic function could not be adequately assessed. There is mild concentric left ventricular hypertrophy. The left ventricle is grossly normal size. Regional wall motion abnormalities cannot be excluded due to limited visualization. The right ventricle is mildly dilated. The right ventricular systolic function is normal. Borderline right atrial enlargement. Borderline left atrial enlargement. There is no mitral valve stenosis. There is a trace amount of mitral regurgitation No aortic regurgitation is present. There is no aortic valve stenosis There is a trace or physiologic amount of tricuspid regurgitation Tricuspid regurgitation jet envelope not well defined to measure RV systolic pressure accurately. The aortic root is not well visualized. The inferior vena cava was not well visualized There is no pericardial effusion. MMode/2D Measurements & Calculations RVDd: 3.7 cm LVIDd: 4.9 cm FS: 33.1 % Ao root diam: 3.4 cm IVSd: 1.1 cm LVIDs: 3.3 cm EDV(Teich): 115.1 ml LVPWd: 1.1 cm ESV(Teich): 44.4 ml Ao root area: 9.0 cm2 EF(Teich): 61.4 % LA dimension: 3.8 cm Doppler Measurements & Calculations MV E max kevin: MV P1/2t max kevin: Ao V2 max: LV V1 max P.1 cm/sec 107.1 cm/sec 116.2 cm/sec 2.7 mmHg MV A max kevin: MV P1/2t: 71.1 msec Ao max PG: LV V1 max: 63.2 cm/sec 13.5 mmHg 82.4 cm/sec MV E/A: 1.7 MVA(P1/2t): 3.1 cm2 MV dec slope: 441.2 cm/sec2 PA V2 max: 89.3 cm/sec PA max P.2 mmHg Left Ventricle The left ventricle is grossly normal size. There is mild concentric left ventricular hypertrophy. The left ventricular ejection fraction is normal. LV diastolic function could not be adequately assessed. Regional wall motion abnormalities cannot be excluded due to limited visualization. Right Ventricle The right ventricle is mildly dilated. There is normal right ventricular wall thickness. The right ventricular systolic function is normal. Atria Borderline right atrial enlargement. Borderline left atrial enlargement. Interarterial septum not well visualized and not well dopplered. Cannot comment on ASD/PFO presence. Mitral Valve The mitral valve is grossly normal. There is no mitral valve stenosis. There is a trace amount of mitral regurgitation. Aortic Valve The aortic valve is not well visualized secondary to technical limitations. There is no aortic valve stenosis. No aortic regurgitation is present. Tricuspid Valve The tricuspid valve is not well visualized secondary to technical limitations. There is no tricuspid stenosis. There is a trace or physiologic amount of tricuspid regurgitation. Tricuspid regurgitation jet envelope not well defined to measure RV systolic pressure accurately. Pulmonic Valve The pulmonic valve is not well visualized. Great Vessels The aortic root is not well visualized. The inferior vena cava was not well visualized. Effusions There is no pericardial effusion. : ALEX AHMADI Shyamal
--- NOTE | 2017-01-08 21:16 | EKG REPORT ---
SEVERITY:- OTHERWISE NORMAL ECG - SINUS RHYTHM ATRIAL PREMATURE COMPLEX : Confirmed by: Nat May MD 08-Jan-2017 21:15:53
--- NOTE | 2017-01-09 07:16 | PDOC DISCHARGE SUMMARY ---
General - Admit/Disc Date/PCP Admission Date/Primary Care Provider: 01/07/17 08:19 POOL TOVAR MD Discharge Date: 01/08/17 - Discharge Diagnosis (1) Acute hypoxemic respiratory failure Is this a current diagnosis for this admission?: Yes (4) GERD (gastroesophageal reflux disease) Is this a current diagnosis for this admission?: Yes (5) Morbid obesity with BMI of 50.0-59.9, adult Is this a current diagnosis for this admission?: Yes (6) Bipolar disorder Is this a current diagnosis for this admission?: Yes (7) Obstructive sleep apnea Is this a current diagnosis for this admission?: Yes (8) PTSD (post-traumatic stress disorder) Is this a current diagnosis for this admission?: Yes (9) Tobacco abuse Is this a current diagnosis for this admission?: Yes - Additional Information Resuscitation Status: Full Code Discharge Diet: Cardiac Discharge Activity: Activity As Tolerated Home Medications: Alprazolam [Xanax] 2 mg PO Q12 01/07/17 Aripiprazole [Abilify 30 MG Tablet] 30 mg PO DAILY 01/07/17 Clonidine HCl [Catapres 0.1 mg Tablet] 0.1 mg PO QHS 01/07/17 Divalproex Sodium [Divalproex Sodium ER] 1,000 mg PO Q12 01/07/17 Mirtazapine [Remeron] 45 mg PO QHS 01/07/17 Olanzapine [Zyprexa] 15 mg PO QHS 01/07/17 Omeprazole 40 mg PO DAILY 01/07/17 Paroxetine HCl [Paxil] 10 mg PO DAILY 01/07/17 Paroxetine HCl [Paxil] 40 mg PO DAILY 01/07/17 Trazodone HCl [Desyrel] 300 mg PO QHS 01/07/17 Zolpidem Tartrate [Zolpidem Tartrate ER] 12.5 mg PO QHS 01/07/17 Albuterol Sulfate [Proair HFA] 1 - 2 puff IH Q4 PRN #1 inhaler 01/08/17 Doxycycline Monohydrate 100 mg PO BID 5 Days #10 tablet 01/08/17 Prednisone 40 mg PO DAILY 5 Days #10 tablet 01/08/17 History of Present Illness History of Present Illness: ANNA ELLIS is a 36 year old male presented with complaint of chest pain. Patient gave history of having extensive cardiac work up in the past which was negative. Patient does however have a significant smoke history but does not give history of COPD. Hospital Course Hospital Course: Patient presented with chest pain. Patient ACS work up was essentially negative. Cardiac echo was technically difficult to obtain do to his size; however, nothing overly concerning was seen. Furthermore, patient was evaluated by cardiology who did not feet that his chest pain was cardiac in nature. Patient chest pain did resolve over night. Patient was though to have acute bronchitis and possible COPD exacerbation, considering his extensive smoking history, resulting in his acute hypoxic respiratory failure. Patient states that he has been walking around and feels fine. Patient was discharge on 40mg po steriods, doxycycline 100mg po bid and pro air PRN for SOB. Please not that patient developed leukocytosis after being started on on high dose steroids. Patient advised to follow up with PCP following his treatment for his acute bronchitis and have PFTS done at some point to evaluate for COPD. Patient has able to obtain better sats while sitting up and taking deep breathes. Patient's chest XR which showed minimal streaky bibasilar opacities likely related to atelectsis with low lung volumes is indicative of his shallow breathing possible due to his central obesity. Patient advised to stop smoking and where his CPAP at night. Patient advised that smoking and not wearing his CPAP can have a negative impact on the heart. Patient was continue on PPI for his GERD. He was continued on his medications for PTSD and bipolar disorder which appear stable at this time. Physical Exam Vital Signs: Temp Pulse Resp BP Pulse Ox 97.8 F 81 20 110/60 93 01/08/17 13:39 01/08/17 13:39 01/08/17 13:39 01/08/17 13:39 01/08/17 13:39 Intake & Output 01/07/17 01/08/17 01/09/17 06:59 06:59 06:59 Intake Total 2090 Output Total 3725 Balance -1635 Weight 138.9 kg General appearance: PRESENT: no acute distress, morbidly obese Head exam: PRESENT: atraumatic, normocephalic Eye exam: PRESENT: EOMI. ABSENT: scleral icterus Ear exam: PRESENT: normal external ear exam Mouth exam: PRESENT: moist Neck exam: ABSENT: carotid bruit, JVD, lymphadenopathy, thyromegaly Respiratory exam: PRESENT: clear to auscultation effie, other - diminished at bases. ABSENT: rales, rhonchi, wheezes Cardiovascular exam: PRESENT: RRR. ABSENT: diastolic murmur, rubs, systolic murmur Pulses: PRESENT: normal dorsalis pedis pul Vascular exam: PRESENT: normal capillary refill GI/Abdominal exam: PRESENT: distended - protuberant, normal bowel sounds, soft. ABSENT: guarding, mass, organolmegaly, rebound, tenderness Rectal exam: PRESENT: deferred Extremities exam: PRESENT: full ROM. ABSENT: calf tenderness, clubbing, pedal edema Neurological exam: PRESENT: alert, awake, oriented to person, oriented to place , oriented to time, oriented to situation, CN II-XII grossly intact. ABSENT: motor sensory deficit Psychiatric exam: PRESENT: flat affect. ABSENT: homicidal ideation, suicidal ideation Skin exam: PRESENT: dry, intact, warm. ABSENT: cyanosis, rash Results Laboratory Results: 01/08/17 02:50 01/08/17 02:50 01/07/17 01/07/17 01/07/17 08:45 15:47 15:47 Creatine Kinase 68 Troponin I < 0.012 < 0.012 01/07/17 01/07/17 01/08/17 20:45 20:45 02:50 Creatine Kinase 70 59 Troponin I < 0.012 01/08/17 02:50 Creatine Kinase Troponin I < 0.012 Impressions: Chest X-Ray 01/07/17 04:05 IMPRESSION: 1. Minimal streaky bibasilar opacities likely related to atelectasis. Low lung volumes. Chest/Abdomen CTA 01/07/17 06:07 IMPRESSION: 1. No pulmonary embolism identified. This exam was performed according to our departmental dose-optimization program, which includes automated exposure control, adjustment of the mA and/or kV according to patient size and/or use of iterative reconstruction technique. Qualifiers PATEINT BEING DISCHARGED WITH ANY OF THE FOLLOWING DIAGNOSIS?: No Plan Discharge Plan: Patient being discharge home on steroid, doxycycline and proair. Patient advised to stop smoking and use his CPAP at night. Time Spent: Less than 30 Minutes
--- NOTE | 2017-01-09 19:43 | EKG REPORT ---
SEVERITY:- NORMAL ECG - SINUS RHYTHM : Confirmed by: Nat May MD 09-Jan-2017 19:42:40
== END 2017-01-08 11:15 | disposition home or self-care (01) | DRG 190 ==
LOC: ER 03:55 → EH 08:19 → 4N 11:00
PROVIDERS: ADMIT Emergency Medicine; ATTEND Emergency Medicine
PROC: 3E0234Z Introduction of Serum, Toxoid and Vaccine into Muscle, Percutaneous Approach (ICD-10-PCS; principal; 2017-01-08)
DX: J44.0 Chronic obstructive pulmonary disease with (acute) lower respiratory infection (principal); J96.01 Acute respiratory failure with hypoxia; Z68.43 Body mass index [BMI] 50.0-59.9, adult; J20.9 Acute bronchitis, unspecified; J44.1 Chronic obstructive pulmonary disease with (acute) exacerbation; F17.210 Nicotine dependence, cigarettes, uncomplicated; E78.5 Hyperlipidemia, unspecified; F31.9 Bipolar disorder, unspecified; K21.9 Gastro-esophageal reflux disease without esophagitis; G47.33 Obstructive sleep apnea (adult) (pediatric); F43.10 Post-traumatic stress disorder, unspecified; E66.01 Morbid (severe) obesity due to excess calories; E11.9 Type 2 diabetes mellitus without complications; T38.0X5A Adverse effect of glucocorticoids and synthetic analogues, initial encounter; D72.829 Elevated white blood cell count, unspecified; G43.909 Migraine, unspecified, not intractable, without status migrainosus; Z23 Encounter for immunization; Z88.8 Allergy status to other drugs, medicaments and biological substances; Z88.1 Allergy status to other antibiotic agents; Z90.49 Acquired absence of other specified parts of digestive tract; Z82.49 Family history of ischemic heart disease and other diseases of the circulatory system; Z79.899 Other long term (current) drug therapy
CPT/HCPCS: 36415; 71010; 71275; 80053; 80061; 80307; 82550; 82553; 82803; 83036; 84439; 84443; 84484; 85025; 87040; 90686; 93005; 93010; 93306; 94640; 96361; 96365; 96375; 99285; A6266; J2060; J2920; J2930; J3475; J3490; J7030; J7060; J7620

== ENCOUNTER → 2017-04-19 | Outpatient (CLI) | payer MEDICARE ==
[2017-04-19 10:08] LABS: ABSOLUTE BASOPHILS # (AUTO) 0.2 10^3/uL (0.0-0.2); ABSOLUTE EOSINOPHILS # (AUTO) 0.1 10^3/uL (0.0-0.6); ABSOLUTE LYMPHOCYTES (AUTO) 5.3 10^3/uL (0.5-4.7); ABSOLUTE NEUT (AUTO) 8.1 10^3/uL (1.7-8.2); BASOPHILS % (AUTO) 1.2 % (0-2); EOSINOPHILS % (AUTO) 0.7 % (0-6); HEMATOCRIT 48.2 % (37.9-51.0); HEMOGLOBIN 16.5 g/dL (13.5-17.0); MEAN CORPUSCULAR HEMOGLOBIN 30.9 pg (27.0-33.4); MEAN CORPUSCULAR HGB CONC 34.1 g/dL (32.0-36.0); MEAN CORPUSCULAR VOLUME 91 fl (80-97); MONOCYTES % (AUTO) 6.5 % (3-13); PLATELET COUNT 272 10^3/uL (150-450); RED BLOOD COUNT 5.33 10^6/uL (4.35-5.55); RED CELL DISTRIBUTION WIDTH 13.2 % (11.5-14.0); SEGMENTED NEUTROPHILS % (AUTO) 55.6 % (42-78); TOTAL CELLS COUNTED % (AUTO) 100 %; WHITE BLOOD COUNT 14.6 10^3/uL (4.0-10.5)
[2017-04-19 10:34] LABS: ALANINE AMINOTRANSFERASE 67 U/L (21-72); ALBUMIN 4.6 g/dL (3.5-5.0); ALKALINE PHOSPHATASE 75 U/L (38-126); ANION GAP 15 (5-19); ASPARTATE AMINO TRANSFERASE 43 U/L (17-59); BILIRUBIN,DIRECT 0.3 mg/dL (0.0-0.4); BILIRUBIN,TOTAL 0.5 mg/dL (0.2-1.3); BLOOD UREA NITROGEN 12 mg/dL (7-20); CALCIUM 10.2 mg/dL (8.4-10.2); CARBON DIOXIDE 22 mmol/L (22-30); CHLORIDE 102 mmol/L (98-107); CHOLESTEROL 243.38 mg/dL (0-200); GLUCOSE 100 mg/dL (75-110); POTASSIUM 4.7 mmol/L (3.6-5.0); SODIUM 138.6 mmol/L (137-145); TOTAL PROTEIN 7.3 g/dL (6.3-8.2); TRIGLYCERIDES 302 mg/dL (<150)
[2017-04-19 10:44] LABS: DIRECT LDL 171 mg/dL (<100)
[2017-04-19 10:45] LABS: VLDL CHOLESTEROL 60.4 mg/dL (10-31)
== END ==
LOC: OD 08:27
PROVIDERS: ATTEND Nurse Practitioner Psychiatric/Mental Health
DX: F39 Unspecified mood [affective] disorder (principal)
CPT/HCPCS: 36415; 80048; 80061; 80076; 80164; 83036; 85025

== ENCOUNTER 2017-06-13 19:22 | Emergency (ER) | payer MEDICARE ==
[2017-06-13] MEDS ORDERED: MORPHINE SULFATE 10 MG/ML INJ IV ONE (19:44)
--- NOTE | 2017-06-13 19:44 | ER Document Report ---
ED Cardiac - General Chief Complaint: Chest Pain Stated Complaint: CHEST PAIN Time Seen by Provider: 06/13/17 19:27 Notes: Patient is a 37-year-old male that comes emergency department for chief complaint of chest pain. Symptoms started one hour prior to arrival while sitting/resting, patient states it is a sharp pain that is in the left side of the chest and goes up towards his neck. He states after the pain started he felt some shortness of breath, denies cough, fever, injury. Denies abdominal pain, nausea or vomiting, had some nausea, given zofran by EMS and this resolved. EMS also gave ASA 324 mg. Patient denies personal cardiac history other than having a negative cardiac catheterization in 2009 and negative stress test in 2012, he is a smoker, his father did have an MRI, he also has a history of asthma/COPD, hyperlipidemia, PTSD/anxiety, and cholecystectomy. TRAVEL OUTSIDE OF THE [place] IN LAST 30 DAYS: No - Related Data Allergies/Adverse Reactions: erythromycin base [Erythromycin Base] Allergy (Severe, Verified 08/30/16 18:24) Hives lamotrigine [From Lamictal] Allergy (Severe, Verified 08/30/16 18:24) Hives nitroglycerin Allergy (Verified 08/30/16 18:24) Hypotension rhondec Allergy (Severe, Uncoded 08/30/16 18:24) Past Medical History - General Information source: Patient - Social History Smoking Status: Current Every Day Smoker Frequency of alcohol use: None Drug Abuse: None Lives with: Family Family History: CAD, Hyperlipidemia, Hypertension - Past Medical History Cardiac Medical History: Reports: Hx Hypercholesterolemia Denies: Hx Coronary Artery Disease, Hx Heart Attack, Hx Hypertension Pulmonary Medical History: Reports: Hx Asthma - LAST ATTACK 08/02/15, Hx Pneumonia - 10/02, Hx Sleep Apnea Denies: Hx Bronchitis, Hx COPD, Hx Tuberculosis Neurological Medical History: Reports: Hx Migraine. 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 - Immunizations Hx Diphtheria, Pertussis, Tetanus Vaccination: Yes Hx Pneumococcal Vaccination: 10/26/12 Review of Systems - Review of Systems Constitutional: No symptoms reported EENT: No symptoms reported Cardiovascular: See HPI Respiratory: See HPI Gastrointestinal: See HPI Genitourinary: No symptoms reported Male Genitourinary: No symptoms reported Musculoskeletal: No symptoms reported Skin: No symptoms reported Hematologic/Lymphatic: No symptoms reported Neurological/Psychological: No symptoms reported Physical Exam - Vital signs Vitals: Resp BP Pulse Ox 20 127/115 H 92 06/13/17 19:50 06/13/17 19:50 06/13/17 19:50 Interpretation: Normal - General General appearance: Anxious In distress: None - HEENT Head: Normocephalic, Atraumatic Eyes: Normal Pupils: PERRL - Respiratory Respiratory status: No respiratory distress Chest status: Other - there is a mildly erythematous circular slightly raised area over the right chest/axillary area, no significant induration, no spreading cellulitis, no other abnormality noted. Normal chest otherwise. Breath sounds: Normal Chest palpation: Normal - Cardiovascular Rhythm: Regular. No: Tachycardia Heart sounds: Normal auscultation, S1 appreciated, S2 appreciated Murmur: No - Abdominal Inspection: Normal Distension: No distension Bowel sounds: Normal Tenderness: Nontender. No: Tender, Guarding Organomegaly: No organomegaly - Back Back: Normal, Nontender. No: Tender - Extremities General upper extremity: Normal inspection, Nontender, Normal color, Normal ROM , Normal temperature General lower extremity: Normal inspection, Nontender, Normal color, Normal ROM , Normal temperature, Normal weight bearing. No: David's sign - Neurological Neuro grossly intact: Yes Cognition: Normal Orientation: AAOx4 [place] Coma Scale Eye Opening: Spontaneous [place] Coma Scale Verbal: Oriented [place] Coma Scale Motor: Obeys Commands Lance Coma Scale Total: 15 Speech: Normal Motor strength normal: LUE, RUE, LLE, RLE Sensory: Normal - Psychological Associated symptoms: Anxious - anxious with slightly rapid speech, but appropriate, makes good eye contact - Skin Skin Temperature: Warm Skin Moisture: Dry Skin Color: Normal Course - Re-evaluation Re-evalutation: EKG showing sinus rhythm at a rate of 95, no T-wave inversions or ST segment changes in consecutive leads, normal axis. Questionable resolving abscess over right chest wall, patient states it has almost completely resolved. Patient has leukocytosis of 16,000, however this is comparable to prior, patient has no fever, no tachycardia, other than the resolving abscess he has no evidence of infection. Nonspecific. Chest x-ray unremarkable except for new nodule in the left lung, provided patient with copy of report and discussed this in detail including possible cancer and required follow-up. Patient was initially complaining of chest pain, did not change with small dose of morphine, patient was then given Ativan because of his anxious appearance and reported history of bipolar and anxiety and after the Ativan his symptoms completely resolved. D-dimer is not elevated, cardiac enzymes cycled and are negative. Patient's heart score is 1. Very low suspicion of ACS, PE, aortic dissection based on his presentation and workup. Discussed workup in detail, patient states he has close follow-up with primary care, states he is ready to leave, satisfied with our clinic, states he feels great and is ready to go home. Discussed return precautions, patient states understanding and agreement. - Vital Signs Vital signs: Temp Pulse Resp BP Pulse Ox 98.5 F 17 110/79 89 L 06/13/17 20:14 06/14/17 00:00 06/14/17 00:01 06/14/17 00:00 - Laboratory Result Diagrams: 06/13/17 20:03 06/13/17 20:03 Laboratory results interpreted by me: 06/13/17 06/13/17 20:03 20:03 WBC 16.7 H Absolute Neutrophils 8.6 H Absolute Lymphocytes 6.1 H Absolute Monocytes 1.6 H Absolute Basophils 0.3 H Calcium 10.5 H Creatine Kinase 46 L Discharge - Discharge Clinical Impression: Chest pain Qualifiers: Chest pain type: unspecified Qualified Code(s): R07.9 - Chest pain, unspecified Condition: Stable Disposition: HOME, SELF-CARE Additional Instructions: Your workup today shows an incidental finding of a lung nodule that needs to be followed up closely with your primary care, however your remaining workup does not show any concerning abnormality. Please follow-up within the next several days with your provider for additional evaluation and referral. Return if you worsen including return or worsening pain, difficulty breathing, vomiting, fever , or any other concerning or worsening symptoms. Chest Pain of Unclear Cause The exact cause of your chest pain isn't clear. Fortunately, there is no evidence of a dangerous medical condition. Further testing may be required to find the source of the pain. Most often, we find that this pain is coming from the chest wall -- the muscles or rib joints in the chest. But chest pain can come from the lung and lung lining, the esophagus, the heart valves or heart lining, and even the stomach or gallbladder. Rest. Eat lightly until the pain is gone. We may prescribe medicine for pain and inflammation. You should call the physician immediately if the pain radiates to the shoulder, jaw or arms; if you start to run a fever or develop a cough; or if you develop shortness of breath, or other new or alarming symptoms. Referrals: POOL TOVAR MD [Primary Care Provider] - Follow up as needed
--- NOTE | 2017-06-13 20:13 | RADIOLOGY REPORT (SQ) ---
EXAM DESCRIPTION: CHEST SINGLE VIEW COMPLETED DATE/TIME: 06/13/2017 7:41 pm REASON FOR STUDY: CP COMPARISON: 01/07/2017 EXAM PARAMETERS: NUMBER OF VIEWS: One view. TECHNIQUE: Single frontal radiographic view of the chest acquired. RADIATION DOSE: NA LIMITATIONS: None. FINDINGS: LUNGS AND PLEURA: New left basilar nodular prominence, approximately 1.4 cm. Otherwise si milar minimal basilar scarring -subsegmental atelectasis. No pneumothorax or pleural effusion. MEDIASTINUM AND HILAR STRUCTURES: Stable. HEART AND VASCULAR STRUCTURES: Heart normal in size. Normal vasculature. BONES: No acute findings. HARDWARE: None in the chest. OTHER: No other significant finding. IMPRESSION: New left basilar nodular prominence, approximately 1.4 cm. Otherwise similar minimal ba silar scarring -subsegmental atelectasis. TECHNICAL DOCUMENTATION: JOB ID: [id number] [place]-[id number] 2010 [employer]- All Rights Reserved Reading location - IP/workstation name: [email or web address]
[2017-06-13 20:16] LABS: ABSOLUTE BASOPHILS # (AUTO) 0.3 10^3/uL (0.0-0.2); ABSOLUTE EOSINOPHILS # (AUTO) 0.1 10^3/uL (0.0-0.6); ABSOLUTE LYMPHOCYTES (AUTO) 6.1 10^3/uL (0.5-4.7); ABSOLUTE MONOCYTES (AUTO) 1.6 10^3/uL (0.1-1.4); ABSOLUTE NEUT (AUTO) 8.6 10^3/uL (1.7-8.2); BASOPHILS % (AUTO) 1.6 % (0-2); EOSINOPHILS % (AUTO) 0.8 % (0-6); HEMATOCRIT 47.9 % (37.9-51.0); HEMOGLOBIN 16.3 g/dL (13.5-17.0); LYMPHOCYTES % (AUTO) 36.6 % (13-45); MEAN CORPUSCULAR HEMOGLOBIN 30.9 pg (27.0-33.4); MEAN CORPUSCULAR VOLUME 91 fl (80-97); MONOCYTES % (AUTO) 9.4 % (3-13); PLATELET COUNT 323 10^3/uL (150-450); RED BLOOD COUNT 5.27 10^6/uL (4.35-5.55); RED CELL DISTRIBUTION WIDTH 13.2 % (11.5-14.0); SEGMENTED NEUTROPHILS % (AUTO) 51.6 % (42-78); TOTAL CELLS COUNTED % (AUTO) 100 %; WHITE BLOOD COUNT 16.7 10^3/uL (4.0-10.5)
[2017-06-13 20:33] LABS: ALANINE AMINOTRANSFERASE 43 U/L (21-72); ALKALINE PHOSPHATASE 72 U/L (38-126); ANION GAP 12 (5-19); ASPARTATE AMINO TRANSFERASE 39 U/L (17-59); BILIRUBIN,DIRECT 0.3 mg/dL (0.0-0.4); BILIRUBIN,TOTAL 0.3 mg/dL (0.2-1.3); BLOOD UREA NITROGEN 14 mg/dL (7-20); CALCIUM 10.5 mg/dL (8.4-10.2); CARBON DIOXIDE 28 mmol/L (22-30); CHLORIDE 104 mmol/L (98-107); CREATINE KINASE 46 U/L (55-170); GLUCOSE 90 mg/dL (75-110); POTASSIUM 4.6 mmol/L (3.6-5.0); SODIUM 143.7 mmol/L (137-145); TOTAL PROTEIN 6.9 g/dL (6.3-8.2)
[2017-06-13 20:43] LABS: CREATINE KINASE MB 0.42 ng/mL (<4.55)
[2017-06-13 20:46] LABS: TROPONIN I < 0.012 ng/mL
[2017-06-13] MEDS ORDERED: LORAZEPAM INJ 2 MG/1 ML VIAL IV ONE (21:09)
[2017-06-14 00:22] VITALS: BP 110/79
--- NOTE | 2017-06-14 12:56 | EKG REPORT ---
SEVERITY:- OTHERWISE NORMAL ECG - SINUS RHYTHM BORDERLINE RIGHT AXIS DEVIATION : Confirmed by: Darrion Hogue MD 14-Jun-2017 12:55:52
== END 2017-06-14 00:22 | disposition home or self-care (01) ==
LOC: ER 19:22
DX: R07.9 Chest pain, unspecified (principal); R06.02 Shortness of breath; F17.200 Nicotine dependence, unspecified, uncomplicated; J44.9 Chronic obstructive pulmonary disease, unspecified
CPT/HCPCS: 93005; 99285; 96374; 96375; 36415; 82553; 82550; 85025; 80053; 84484; 85379; 71045; 93010; J2270; J2060

== ENCOUNTER 2017-11-12 15:31 | Emergency (ER) | payer MEDICARE ==
[2017-11-12 16:06] LABS: ABSOLUTE BASOPHILS # (AUTO) 0.2 10^3/uL (0.0-0.2); ABSOLUTE EOSINOPHILS # (AUTO) 0.1 10^3/uL (0.0-0.6); ABSOLUTE MONOCYTES (AUTO) 0.8 10^3/uL (0.1-1.4); ABSOLUTE NEUT (AUTO) 9.2 10^3/uL (1.7-8.2); BASOPHILS % (AUTO) 1.4 % (0-2); EOSINOPHILS % (AUTO) 0.9 % (0-6); HEMATOCRIT 47.1 % (37.9-51.0); HEMOGLOBIN 16.3 g/dL (13.5-17.0); LYMPHOCYTES % (AUTO) 27.7 % (13-45); MEAN CORPUSCULAR HEMOGLOBIN 30.9 pg (27.0-33.4); MEAN CORPUSCULAR HGB CONC 34.6 g/dL (32.0-36.0); MEAN CORPUSCULAR VOLUME 89 fl (80-97); MONOCYTES % (AUTO) 5.8 % (3-13); PLATELET COUNT 283 10^3/uL (150-450); RED BLOOD COUNT 5.27 10^6/uL (4.35-5.55); RED CELL DISTRIBUTION WIDTH 13.3 % (11.5-14.0); SEGMENTED NEUTROPHILS % (AUTO) 64.2 % (42-78); TOTAL CELLS COUNTED % (AUTO) 100 %; WHITE BLOOD COUNT 14.4 10^3/uL (4.0-10.5)
--- NOTE | 2017-11-12 16:15 | RADIOLOGY REPORT (SQ) ---
EXAM DESCRIPTION: CHEST SINGLE VIEW COMPLETED DATE/TIME: 11/12/2017 4:07 pm REASON FOR STUDY: bed 2 cp COMPARISON: 06/13/2017 EXAM PARAMETERS: NUMBER OF VIEWS: One view. TECHNIQUE: Single frontal radiographic view of the chest acquired. RADIATION DOSE: NA LIMITATIONS: None. FINDINGS: LUNGS AND PLEURA: Stable scarring in the lung bases. No effusions. MEDIASTINUM AND HILAR STRUCTURES: No masses. Contour normal. HEART AND VASCULAR STRUCTURES: Heart normal in size. Normal vasculature. BONES: No acute findings. HARDWARE: None in the chest. OTHER: No other significant finding. IMPRESSION: NO ACUTE RADIOGRAPHIC FINDING IN THE CHEST. TECHNICAL DOCUMENTATION: JOB ID: [id number] [employer]- All Rights Reserved Reading location - IP/workstation name: [email or web address]
[2017-11-12 16:17] LABS: ALANINE AMINOTRANSFERASE 26 U/L (21-72); ALBUMIN 4.1 g/dL (3.5-5.0); ALKALINE PHOSPHATASE 83 U/L (38-126); ANION GAP 11 (5-19); ASPARTATE AMINO TRANSFERASE 24 U/L (17-59); BILIRUBIN,DIRECT 0.3 mg/dL (0.0-0.4); BILIRUBIN,TOTAL 0.5 mg/dL (0.2-1.3); BLOOD UREA NITROGEN 12 mg/dL (7-20); CALCIUM 9.6 mg/dL (8.4-10.2); CARBON DIOXIDE 25 mmol/L (22-30); CHLORIDE 104 mmol/L (98-107); CREATINE KINASE 47 U/L (55-170); GLUCOSE 95 mg/dL (75-110); POTASSIUM 4.5 mmol/L (3.6-5.0); SODIUM 139.8 mmol/L (137-145); TOTAL PROTEIN 7.1 g/dL (6.3-8.2)
[2017-11-12 16:28] LABS: CREATINE KINASE MB 0.63 ng/mL (<4.55); TROPONIN I < 0.012 ng/mL
--- NOTE | 2017-11-12 17:03 | EKG REPORT ---
SEVERITY:- NORMAL ECG - SINUS RHYTHM : Confirmed by: Nat May MD 12-Nov-2017 17:02:14
--- NOTE | 2017-11-12 17:17 | ER Document Report ---
ED General - General Mode of Arrival: Ambulatory Information source: Patient TRAVEL OUTSIDE OF THE [place] IN LAST 30 DAYS: No <VIDHYA MCKEON - Last Filed: 11/12/17 17:34> <ELIO PRADO - Last Filed: 11/12/17 18:51> - General Chief Complaint: Chest Pain Stated Complaint: CHEST PAIN Time Seen by Provider: 11/12/17 16:53 Notes: Patient is a 37 year old male presenting to the emergency department complaining of chest pain onset around 1400 today. Patient states he has not been feeling well today so he was laying in bed when he began to have chest pain. Patient denies any exacerbating or relieving factors. He mentions having a stress test next month with Dr. Vale due to having recurrent chest pain. He states he would have chest pain approximately 2x a week. He states he came to the emergency department today because of a general malaise and chest heaviness although he states his current chest pain is similar to his past symptoms. (VIDHYA MCKEON) - Related Data Allergies/Adverse Reactions: erythromycin base [Erythromycin Base] Allergy (Severe, Verified 08/30/16 18:24) Hives lamotrigine [From Lamictal] Allergy (Severe, Verified 08/30/16 18:24) Hives nitroglycerin Allergy (Verified 08/30/16 18:24) Hypotension rhondec Allergy (Severe, Uncoded 08/30/16 18:24) Past Medical History - General Information source: Patient - Social History Smoking Status: Current Every Day Smoker Family History: CAD, Hyperlipidemia, Hypertension Patient has suicidal ideation: No Patient has homicidal ideation: No - Past Medical History Cardiac Medical History: Reports: Hx Hypercholesterolemia Pulmonary Medical History: Reports: Hx Asthma - LAST ATTACK 08/02/15, Hx COPD, Hx Pneumonia - 10/02, Hx Sleep Apnea Neurological Medical History: Reports: Hx Migraine Psychiatric Medical History: Reports: Hx Bipolar Disorder, Hx Depression, 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 - Immunizations Hx Diphtheria, Pertussis, Tetanus Vaccination: Yes Hx Pneumococcal Vaccination: 10/26/12 <VIDHYA MCKEON - Last Filed: 11/12/17 17:34> Review of Systems - Review of Systems Constitutional: See HPI, Malaise EENT: No symptoms reported Cardiovascular: See HPI, Chest pain Respiratory: No symptoms reported Gastrointestinal: No symptoms reported Genitourinary: No symptoms reported Male Genitourinary: No symptoms reported Musculoskeletal: No symptoms reported Skin: No symptoms reported Hematologic/Lymphatic: No symptoms reported Neurological/Psychological: No symptoms reported -: Yes All other systems reviewed and negative <LINDAVIDHYA WAY - Last Filed: 11/12/17 17:34> Physical Exam <BHASKAR MCKEONMARILIN - Last Filed: 11/12/17 17:34> <ELIO PRADO - Last Filed: 11/12/17 18:51> - Vital signs Vitals: Temp 97.9 F 11/12/17 15:32 - Notes Notes: GENERAL: Alert, interacts well. No acute distress. HEAD: Normocephalic, atraumatic. EYES: Pupils equal, round, and reactive to light. Extraocular movements intact. ENT: Oral mucosa moist, tongue midline. NECK: Full range of motion. Supple. Trachea midline. LUNGS: Clear to auscultation bilaterally, no wheezes, rales, or rhonchi. No respiratory distress. No chest wall tenderness to palpation. HEART: Regular rate and rhythm. No murmurs, gallops, or rubs. ABDOMEN: Soft, obese. Non-tender. Non-distended. Bowel sounds present in all 4 quadrants. EXTREMITIES: Moves all 4 extremities spontaneously. NEUROLOGICAL: Alert and oriented x3. Normal speech. PSYCH: Normal affect, normal mood. SKIN: Warm, dry, normal turgor. No rashes or lesions noted. (VIDHYA MCKEON) Course - Laboratory Result Diagrams: 11/12/17 15:50 11/12/17 15:50 <VIDHYA MCKEON - Last Filed: 11/12/17 17:34> - Laboratory Result Diagrams: 11/12/17 15:50 11/12/17 15:50 - EKG Interpretation by Pr EKG shows normal: Sinus rhythm, [place], Intervals, QRS Complexes, ST-T Waves Rate: Normal - 78 Rhythm: NSR When compared to previous EKG there are: No significant change <ELIO PRADO - Last Filed: 11/12/17 18:51> - Vital Signs Vital signs: Temp Pulse Resp BP Pulse Ox 97.9 F 14 109/86 H 94 11/12/17 15:32 11/12/17 15:42 11/12/17 15:41 11/12/17 15:42 - Laboratory Laboratory results interpreted by me: 11/12/17 11/12/17 11/12/17 15:50 15:50 17:35 WBC 14.4 H Absolute Neutrophils 9.2 H Creatine Kinase 47 L Ur Leukocyte Esterase TRACE H Discharge <VIDHYA MCKEON - Last Filed: 11/12/17 17:34> <ELIO PRADO - Last Filed: 11/12/17 18:51> - Discharge Clinical Impression: Feeling bad Chest pain Qualifiers: Chest pain type: unspecified Qualified Code(s): R07.9 - Chest pain, unspecified Leukocytosis Qualifiers: Leukocytosis type: unspecified Qualified Code(s): D72.829 - Elevated white blood cell count, unspecified Condition: Stable Disposition: HOME, SELF-CARE Additional Instructions: Chest Pain of Unclear Cause: The exact cause of your chest pain isn't clear. Fortunately, there is no evidence of a dangerous medical condition. Further testing may be required to find the source of the pain. Most often, we find that this pain is coming from the chest wall -- the muscles or rib joints in the chest. But chest pain can come from the lung and lung lining, the esophagus, the heart valves or heart lining, and even the stomach or gallbladder. Rest. Eat lightly until the pain is gone. We may prescribe medicine for pain and inflammation. You should call the physician immediately if the pain radiates to the shoulder, jaw or arms; if you start to run a fever or develop a cough; or if you develop shortness of breath, or other new or alarming symptoms. No clear cause for your symptoms was identified. Your white blood cell count was slightly elevated, but there was no shift to suggest a bacterial infectious process. You most likely have a viral type illness which is making you feel poorly and possibly making your chronic chest pain worse than usual. You should take Tylenol and ibuprofen for your chest discomfort. Be sure to drink plenty of fluids over the next few days. Follow-up with your primary care provider if not improving. RETURN TO THE EMERGENCY ROOM IF ANY NEW OR WORSENING SYMPTOMS. Referrals: POOL TOVAR MD [Primary Care Provider] - Follow up as needed Scribe Attestation: 11/12/17 18:50 I personally performed the services described in the documentation, reviewed and edited the documentation which was dictated to the scribe in my presence, and it accurately records my words and actions. (ELIO PRADO) Scribe Documentation - Scribe Written by Scrwilfredoe:: Shankar Andrew, 11/12/2017 17:21 acting as scribe for :: [employer] <VIDHYA MCKEON - Last Filed: 11/12/17 17:34>
[2017-11-12 17:53] LABS: APPEARANCE,URINE CLEAR; BILIRUBIN,URINE NEGATIVE (NEGATIVE); COLOR,URINE YELLOW; GLUCOSE, URINE NEGATIVE (NEGATIVE); KETONES,URINE NEGATIVE (NEGATIVE); LEUKOCYTE ESTERASE,URINE TRACE (NEGATIVE); NITRITE,URINE NEGATIVE (NEGATIVE); PROTEIN,URINE NEGATIVE (NEGATIVE); URINE SPECIFIC GRAVITY 1.009; UROBILINOGEN,URINE NEGATIVE mg/dL (<2.0)
[2017-11-12 18:53] VITALS: BP 93/56
== END 2017-11-12 18:59 | disposition home or self-care (01) ==
LOC: ER 15:31
DX: R07.9 Chest pain, unspecified (principal); D72.829 Elevated white blood cell count, unspecified; R53.81 Other malaise; F17.200 Nicotine dependence, unspecified, uncomplicated; J44.9 Chronic obstructive pulmonary disease, unspecified; Z88.1 Allergy status to other antibiotic agents; Z88.8 Allergy status to other drugs, medicaments and biological substances; Z82.49 Family history of ischemic heart disease and other diseases of the circulatory system
CPT/HCPCS: 36415; 71045; 80053; 81001; 82550; 82553; 84484; 85025; 93005; 93010; 99285

== ENCOUNTER 2017-11-19 15:47 | Emergency (ER) | payer MEDICARE ==
--- NOTE | 2017-11-19 16:34 | ER Document Report ---
ED Medical Screen (RME) - General Chief Complaint: Chest Pain Stated Complaint: CHEST PAIN Time Seen by Provider: 11/19/17 16:28 Mode of Arrival: Ambulatory Information source: Patient, Relative, [facility] Records Notes: 37-year-old male presents with complaint of chest pain that started just prior to arrival. He describes the pain as a constant stabbing pain that is associated with nausea and dizziness. Patient has had prior similar symptoms. He states he was seen in the emergency department last week. He was seen by his veterans service officer Dr. Vale who told him to come to the emergency department. I have greeted and performed a rapid initial assessment of this patient. A comprehensive ED assessment and evaluation of the patient, analysis of test results and completion of medical decision making process we will be contacted by additional ED providers. PHYSICAL EXAMINATION: Vital signs reviewed-within normal limits GENERAL: Well-appearing, well-nourished and in no acute distress. LUNGS: No respiratory distress Musculoskeletal: Normal range of motion NEUROLOGICAL: Normal speech, normal gait. PSYCH: Normal mood, normal affect. SKIN: Warm, Dry, normal turgor, no rashes or lesions noted. TRAVEL OUTSIDE OF THE [place] IN LAST 30 DAYS: No - HPI Onset: Just prior to arrival Onset/Duration: Sudden, Constant Quality of pain: Stabbing Severity: Moderate Associated Symptoms: Chest pain, Dizzy/lightheaded, Nausea. denies: Shortness of breath Exacerbated by: Denies Relieved by: Denies Similar symptoms previously: Yes Recently seen / treated by doctor: Yes - Related Data Smoking: Cigarettes Frequency of alcohol use: None Drug Abuse: None Allergies/Adverse Reactions: erythromycin base [Erythromycin Base] Allergy (Severe, Verified 11/19/17 16:30) Hives lamotrigine [From Lamictal] Allergy (Severe, Verified 11/19/17 16:30) Hives nitroglycerin Allergy (Verified 11/19/17 16:30) Hypotension rhondec Allergy (Severe, Uncoded 11/19/17 16:30) Past Medical History - Social History Chew tobacco use (# tins/day): No Frequency of alcohol use: None Drug Abuse: None - Past Medical History Cardiac Medical History: Reports: Hx Hypercholesterolemia Denies: Hx Coronary Artery Disease, Hx Heart Attack, Hx Hypertension Pulmonary Medical History: Reports: Hx Asthma - LAST ATTACK 08/02/15, Hx COPD, Hx Pneumonia - 08/15, Hx Sleep Apnea Denies: Hx Bronchitis, Hx Tuberculosis Neurological Medical History: Reports: Hx Migraine. 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 - Immunizations Hx Diphtheria, Pertussis, Tetanus Vaccination: Yes History of Influenza Vaccine for 11/2016 - 04/2017 Season: No Physical Exam - Vital signs Vitals: Temp Pulse Resp BP Pulse Ox 98.1 F 89 20 112/72 96 11/19/17 16:03 11/19/17 16:03 11/19/17 16:03 11/19/17 16:03 11/19/17 16:03 Course - Vital Signs Vital signs: Temp Pulse Resp BP Pulse Ox 98.1 F 89 20 112/72 96 11/19/17 16:03 11/19/17 16:03 11/19/17 16:03 11/19/17 16:03 11/19/17 16:03 Doctor's Discharge - Discharge Referrals: POOL TOVAR MD [Primary Care Provider] - Follow up as needed
[2017-11-19 17:06] LABS: ABSOLUTE BASOPHILS # (AUTO) 0.2 10^3/uL (0.0-0.2); ABSOLUTE EOSINOPHILS # (AUTO) 0.1 10^3/uL (0.0-0.6); ABSOLUTE LYMPHOCYTES (AUTO) 4.5 10^3/uL (0.5-4.7); ABSOLUTE MONOCYTES (AUTO) 1.2 10^3/uL (0.1-1.4); ABSOLUTE NEUT (AUTO) 10.6 10^3/uL (1.7-8.2); BASOPHILS % (AUTO) 1.2 % (0-2); EOSINOPHILS % (AUTO) 0.8 % (0-6); HEMATOCRIT 46.5 % (37.9-51.0); HEMOGLOBIN 16.5 g/dL (13.5-17.0); LYMPHOCYTES % (AUTO) 26.9 % (13-45); MEAN CORPUSCULAR HEMOGLOBIN 31.7 pg (27.0-33.4); MEAN CORPUSCULAR HGB CONC 35.5 g/dL (32.0-36.0); MEAN CORPUSCULAR VOLUME 89 fl (80-97); MONOCYTES % (AUTO) 7.3 % (3-13); PLATELET COUNT 297 10^3/uL (150-450); RED BLOOD COUNT 5.22 10^6/uL (4.35-5.55); RED CELL DISTRIBUTION WIDTH 13.3 % (11.5-14.0); SEGMENTED NEUTROPHILS % (AUTO) 63.8 % (42-78); TOTAL CELLS COUNTED % (AUTO) 100 %; WHITE BLOOD COUNT 16.6 10^3/uL (4.0-10.5)
--- NOTE | 2017-11-19 17:10 | RADIOLOGY REPORT (SQ) ---
EXAM DESCRIPTION: CHEST SINGLE VIEW COMPLETED DATE/TIME: 11/19/2017 4:59 pm REASON FOR STUDY: pain COMPARISON: 06/18/2016 EXAM PARAMETERS: NUMBER OF VIEWS: One view. TECHNIQUE: Single frontal radiographic view of the chest acquired. RADIATION DOSE: NA LIMITATIONS: None. FINDINGS: LUNGS AND PLEURA: No opacities, masses or pneumothorax. No pleural effusion. MEDIASTINUM AND HILAR STRUCTURES: No masses. Contour normal. HEART AND VASCULAR STRUCTURES: Heart normal in size. Normal vasculature. BONES: No acute findings. HARDWARE: None in the chest. OTHER: No other significant finding. IMPRESSION: NO ACUTE RADIOGRAPHIC FINDING IN THE CHEST. TECHNICAL DOCUMENTATION: JOB ID: [id number] [employer]- All Rights Reserved Reading location - IP/workstation name: [email or web address]
[2017-11-19 17:22] LABS: ALANINE AMINOTRANSFERASE 23 U/L (21-72); ALBUMIN 4.4 g/dL (3.5-5.0); ALKALINE PHOSPHATASE 87 U/L (38-126); ANION GAP 13 (5-19); ASPARTATE AMINO TRANSFERASE 19 U/L (17-59); BILIRUBIN,DIRECT 0.3 mg/dL (0.0-0.4); BILIRUBIN,TOTAL 0.5 mg/dL (0.2-1.3); BLOOD UREA NITROGEN 12 mg/dL (7-20); CALCIUM 10.8 mg/dL (8.4-10.2); CARBON DIOXIDE 26 mmol/L (22-30); CHLORIDE 101 mmol/L (98-107); CREATINE KINASE 40 U/L (55-170); GLUCOSE 86 mg/dL (75-110); POTASSIUM 4.3 mmol/L (3.6-5.0); SODIUM 140.4 mmol/L (137-145); TOTAL PROTEIN 7.5 g/dL (6.3-8.2)
[2017-11-19 17:34] LABS: CREATINE KINASE MB 0.47 ng/mL (<4.55)
[2017-11-19 17:35] LABS: TROPONIN I < 0.012 ng/mL
--- NOTE | 2017-11-19 18:54 | ER Document Report ---
ED General - General Chief Complaint: Chest Pain Stated Complaint: CHEST PAIN Time Seen by Provider: 11/19/17 16:28 Mode of Arrival: Ambulatory TRAVEL OUTSIDE OF THE [place] IN LAST 30 DAYS: No - HPI Patient complains to provider of: Chest pain Notes: Patient coming in for evaluation of chest pain. Patient states to have chest pain earlier today therefore went to his local graphics programmer and EKG performed was given aspirin told to come to the ER for further evaluation. Patient upon my evaluation chest pain-free denies any recent travel denies any shortness of breath resting comfortably upon my evaluation patient denies any trauma. States negative cardiac catheterization 2009 for chest pain. Otherwise patient denies any other cardiac history patient is on multiple psychiatric medications which he states he has been compliant with. - Related Data Allergies/Adverse Reactions: erythromycin base [Erythromycin Base] Allergy (Severe, Verified 11/19/17 16:30) Hives lamotrigine [From Lamictal] Allergy (Severe, Verified 11/19/17 16:30) Hives nitroglycerin Allergy (Verified 11/19/17 16:30) Hypotension rhondec Allergy (Severe, Uncoded 11/19/17 16:30) Past Medical History - General Information source: Patient, Relative, [facility] Records - Social History Smoking Status: Current Every Day Smoker Chew tobacco use (# tins/day): No Frequency of alcohol use: None Drug Abuse: None Family History: CAD, Hyperlipidemia, Hypertension Patient has suicidal ideation: No Patient has homicidal ideation: No - Past Medical History Cardiac Medical History: Reports: Hx Hypercholesterolemia Denies: Hx Coronary Artery Disease, Hx Heart Attack, Hx Hypertension Pulmonary Medical History: Reports: Hx Asthma - LAST ATTACK 08/02/15, Hx COPD, Hx Pneumonia - 10/02, Hx Sleep Apnea Denies: Hx Bronchitis, Hx Tuberculosis Neurological Medical History: Reports: Hx Migraine. 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 - Immunizations Hx Diphtheria, Pertussis, Tetanus Vaccination: Yes Hx Pneumococcal Vaccination: 09/08/13 Review of Systems - Review of Systems Constitutional: No symptoms reported EENT: No symptoms reported Cardiovascular: Chest pain Respiratory: No symptoms reported Gastrointestinal: No symptoms reported Genitourinary: No symptoms reported Male Genitourinary: No symptoms reported Musculoskeletal: No symptoms reported Skin: No symptoms reported Hematologic/Lymphatic: No symptoms reported Neurological/Psychological: No symptoms reported -: Yes All other systems reviewed and negative Physical Exam - Vital signs Vitals: Temp Pulse Resp BP Pulse Ox 98.1 F 89 20 112/72 96 11/19/17 16:03 11/19/17 16:03 11/19/17 16:03 11/19/17 16:03 11/19/17 16:03 Interpretation: Normal - General General appearance: Appears well, Alert - HEENT Head: Normocephalic, Atraumatic Eyes: Normal Pupils: PERRL - Respiratory Respiratory status: No respiratory distress Chest status: Nontender Breath sounds: Normal Chest palpation: Normal - Cardiovascular Rhythm: Regular Heart sounds: Normal auscultation Murmur: No - Abdominal Inspection: Normal Distension: No distension Bowel sounds: Normal Tenderness: Nontender Organomegaly: No organomegaly - Back Back: Normal, Nontender - Extremities General upper extremity: Normal inspection, Nontender, Normal color, Normal ROM , Normal temperature General lower extremity: Normal inspection, Nontender, Normal color, Normal ROM , Normal temperature, Normal weight bearing. No: David's sign - Neurological Neuro grossly intact: Yes Cognition: Normal Orientation: AAOx4 Walls Coma Scale Eye Opening: Spontaneous Walls Coma Scale Verbal: Oriented Walls Coma Scale Motor: Obeys Commands Walls Coma Scale Total: 15 Speech: Normal Motor strength normal: LUE, RUE, LLE, RLE Sensory: Normal - Psychological Associated symptoms: Normal affect, Normal mood - Skin Skin Temperature: Warm Skin Moisture: Dry Skin Color: Normal Course - Re-evaluation Re-evalutation: 11/19/17 22:04 The patient has atypical chest pain as the patient's chest pain is not suggestive of pulmonary embolus, cardiac ischemia, aortic dissection, or other serious etiology. Given the extremely low risk of these diagnoses further testing and evaluation for these possibilities does not appear to be indicated at this time. The patient has been instructed to return if the symptoms worsen or change in any way. Discussed with Dr. Vale the patient's graphics programmer about the patient's results here agrees the patient can be discharged home patient has a scheduled stress test in the next upcoming days. - Vital Signs Vital signs: Temp Pulse Resp BP Pulse Ox 98 F 89 18 121/75 93 11/19/17 19:10 11/19/17 16:03 11/19/17 19:01 11/19/17 19:01 11/19/17 19:01 - Laboratory Result Diagrams: 11/19/17 16:55 11/19/17 16:55 Laboratory results interpreted by me: 11/19/17 11/19/17 16:55 16:55 WBC 16.6 H Absolute Neutrophils 10.6 H Calcium 10.8 H Creatine Kinase 40 L Discharge - Discharge Clinical Impression: Chest pain Qualifiers: Chest pain type: unspecified Qualified Code(s): R07.9 - Chest pain, unspecified GERD (gastroesophageal reflux disease) Qualifiers: Esophagitis presence: without esophagitis Qualified Code(s): K21.9 - Gastro- esophageal reflux disease without esophagitis Condition: Good Disposition: HOME, SELF-CARE Instructions: Antacid Therapy ([facility]), Chest Wall Pain ([facility]), Chest Pain of Unclear Cause ([facility]) Additional Instructions: Your evaluation today shows a normal EKG and normal chest x-ray also along with a normal troponin. Would highly recommend she follow-up with your primary care physician return to ER symptoms worsen. Discussed results with Dr. Vale who believes that her pain more likely is due to acid reflux please continue all your home medications return to the ER if your symptoms worsen. Prescriptions: Omeprazole 20 mg PO DAILY #30 capsule. Referrals: POOL TOVAR MD [Primary Care Provider] - Follow up as needed
[2017-11-19 19:08] VITALS: BP 121/75
--- NOTE | 2017-11-19 19:43 | EKG REPORT ---
SEVERITY:- NORMAL ECG - SINUS RHYTHM : Confirmed by: Tae Vale 19-Nov-2017 19:42:09
== END 2017-11-19 19:19 | disposition home or self-care (01) ==
LOC: ER 15:47
DX: R07.9 Chest pain, unspecified (principal); K21.9 Gastro-esophageal reflux disease without esophagitis; F17.200 Nicotine dependence, unspecified, uncomplicated; E78.00 Pure hypercholesterolemia, unspecified; Z88.3 Allergy status to other anti-infective agents; Z90.49 Acquired absence of other specified parts of digestive tract
CPT/HCPCS: 36415; 71045; 80053; 82550; 82553; 84484; 85025; 93005; 93010; 99285

== ENCOUNTER 2018-05-20 17:08 | Emergency (ER) | payer MEDICARE ==
--- NOTE | 2018-05-20 17:34 | EKG REPORT ---
SEVERITY:- NORMAL ECG - SINUS RHYTHM : Confirmed by: Darrion Hogue MD 20-May-2018 17:34:06
--- NOTE | 2018-05-20 18:01 | ER Document Report ---
ED Medical Screen (RME) - General Chief Complaint: Chest Pain Stated Complaint: CHEST PAIN Time Seen by Provider: 05/20/18 18:00 Primary Care Provider: POOL TOVAR MD [Primary Care Provider] - Follow up as needed TRAVEL OUTSIDE OF THE [place] IN LAST 30 DAYS: No - HPI Notes: 05/20/18 18:01 Patient is a 38-year-old male with a history of asthma/COPD, hyperlipidemia, PTSD/anxiety, and cholecystectomy who presents to the emergency department complaining of mid chest pain that radiates to his left shoulder that began 2 hours ago. He also has occasional shortness of breath. Patient states that the pain is described as sharp and is constant. He is not aware of anything that makes it worse or improves his pain including p.o. intake. Patient states that he has had chest pain similar to this over the last 9 years with his last episode in January. He is otherwise eating and drinking without difficulty. He is urinating normally and having normal bowel movements. Ambulation does not worsen his symptoms. Denies any headache, fever, URI, sore throat, palpitations, syncope, cough, shortness of breath, wheeze, dyspnea, abdominal pain, nausea/vomiting/diarrhea, urinary retention, dysuria, hematuria, or rash. I have treated and performed a rapid initial assessment of this patient. A comprehensive ED assessment and evaluation of the patient, analysis of test results and completion of medical decision making process will be conducted by additional ED providers. PHYSICAL EXAMINATION: GENERAL: Well-appearing, well-nourished and in no acute distress. A&Ox4. Answe rs questions appropriately. LUNGS: Breath sounds clear to auscultation bilaterally and equal. No wheezes rales or rhonchi. HEART: Regular rate and rhythm without murmurs, rubs, gallops. Extremities: No cyanosis, clubbing, or edema b/l. No lower extremity asymmetry. David negative bilaterally. NEUROLOGICAL: Normal speech, normal gait. PSYCH: Normal mood, normal affect. - Related Data Allergies/Adverse Reactions: erythromycin base [Erythromycin Base] Allergy (Severe, Verified 05/20/18 17:10) Hives lamotrigine [From Lamictal] Allergy (Severe, Verified 05/20/18 17:10) Hives nitroglycerin Allergy (Verified 05/20/18 17:10) Hypotension rhondec Allergy (Severe, Uncoded 05/20/18 17:10) Past Medical History - Past Medical History Cardiac Medical History: Reports: Hx Hypercholesterolemia Denies: Hx Coronary Artery Disease, Hx Heart Attack, Hx Hypertension Pulmonary Medical History: Reports: Hx Asthma - LAST ATTACK 08/02/15, Hx COPD, Hx Pneumonia - 10/02, Hx Sleep Apnea Denies: Hx Bronchitis, Hx Tuberculosis Neurological Medical History: Reports: Hx Migraine. 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 - Immunizations Hx Diphtheria, Pertussis, Tetanus Vaccination: Yes History of Influenza Vaccine for 11/2016 - 04/2017 Season: No Physical Exam - Vital signs Vitals: Temp Pulse Resp BP Pulse Ox 97.8 F 80 17 136/84 H 95 05/20/18 17:19 05/20/18 17:19 05/20/18 17:19 05/20/18 17:19 05/20/18 17:19 Course - Vital Signs Vital signs: Temp Pulse Resp BP Pulse Ox 97.8 F 80 17 136/84 H 95 05/20/18 17:19 05/20/18 17:19 05/20/18 17:19 05/20/18 17:19 05/20/18 17:19 Doctor's Discharge - Discharge Referrals: POOL TOVAR MD [Primary Care Provider] - Follow up as needed
--- NOTE | 2018-05-20 18:42 | RADIOLOGY REPORT (SQ) ---
EXAM DESCRIPTION: CHEST SINGLE VIEW COMPLETED DATE/TIME: 05/20/2018 6:33 pm REASON FOR STUDY: CP COMPARISON: 11/19/2017 EXAM PARAMETERS: NUMBER OF VIEWS: One view. TECHNIQUE: Single frontal radiographic view of the chest acquired. RADIATION DOSE: NA LIMITATIONS: None. FINDINGS: LUNGS AND PLEURA: Minimal basilar atelectasis. No consolidation or pleural effusions. MEDIASTINUM AND HILAR STRUCTURES: No masses. Contour normal. HEART AND VASCULAR STRUCTURES: Heart normal in size. Normal vasculature. BONES: No acute findings. HARDWARE: None in the chest. OTHER: No other significant finding. IMPRESSION: Minimal basilar atelectasis. No consolidation. TECHNICAL DOCUMENTATION: JOB ID: [id number] [employer]- All Rights Reserved Reading location - IP/workstation name: [email or web address]
[2018-05-20 19:02] LABS: ABSOLUTE BASOPHILS # (AUTO) 0.1 10^3/uL (0.0-0.2); ABSOLUTE EOSINOPHILS # (AUTO) 0.2 10^3/uL (0.0-0.6); ABSOLUTE LYMPHOCYTES (AUTO) 4.8 10^3/uL (0.5-4.7); ABSOLUTE MONOCYTES (AUTO) 0.8 10^3/uL (0.1-1.4); ABSOLUTE NEUT (AUTO) 7.9 10^3/uL (1.7-8.2); EOSINOPHILS % (AUTO) 1.2 % (0-6); HEMATOCRIT 48.7 % (37.9-51.0); HEMOGLOBIN 16.9 g/dL (13.5-17.0); LYMPHOCYTES % (AUTO) 34.8 % (13-45); MEAN CORPUSCULAR HEMOGLOBIN 31.7 pg (27.0-33.4); MEAN CORPUSCULAR HGB CONC 34.8 g/dL (32.0-36.0); MEAN CORPUSCULAR VOLUME 91 fl (80-97); MONOCYTES % (AUTO) 5.9 % (3-13); PLATELET COUNT 272 10^3/uL (150-450); RED BLOOD COUNT 5.34 10^6/uL (4.35-5.55); RED CELL DISTRIBUTION WIDTH 13.1 % (11.5-14.0); SEGMENTED NEUTROPHILS % (AUTO) 57.1 % (42-78); TOTAL CELLS COUNTED % (AUTO) 100 %; WHITE BLOOD COUNT 13.9 10^3/uL (4.0-10.5)
--- NOTE | 2018-05-20 19:06 | ER Document Report ---
ED Cardiac - General Chief Complaint: Chest Pain Stated Complaint: CHEST PAIN Time Seen by Provider: 05/20/18 19:06 Primary Care Provider: POOL TOVAR MD [NO LOCAL MD] - Follow up as needed Mode of Arrival: Ambulatory Information source: Patient Notes: HISTORY OF PRESENT ILLNESS: Patient is a 38-year-old male with a past medical history of hyperlipidemia who presents with left-sided chest pain that is sharp in nature and radiates to the left shoulder beginning earlier today while at rest. Location: Left chest Onset: Sudden Alleviation: None Provocation: Unknown Quality: Sharp Radiation: Left shoulder Severity: Moderate Timing: Intermittent but persistent History of CAD: None Associated symptoms: No fevers or chills, no cough or congestion, no shortness of breath or swelling of extremities REVIEW OF SYSTEMS: CONSTITUTIONAL : Denies fever or chills, no sweats. Denies recent illness. EENT: Denies eye, ear, throat, or mouth pain or symptoms. Denies nasal or sinus congestion. CARDIOVASCULAR: Positive for chest pain. Denies swelling of the legs. RESPIRATORY: Denies cough, cold, or chest congestion. Denies shortness of breath or difficulty breathing. Denies wheezing. GASTROINTESTINAL: Denies abdominal pain. Denies nausea, vomiting, or diarrhea. Denies constipation. GENITOURINARY: Denies difficulty urinating, painful urination, burning, frequency, or blood in urine. MUSCULOSKELETAL: Denies neck or back pain or joint pain or swelling. SKIN: Denies rash or skin lesions. HEMATOLOGIC : Denies easy bruising or bleeding. LYMPHATIC: Denies swollen, enlarged glands. NEUROLOGICAL: Denies altered mental status or loss of consciousness. Denies headache. Denies weakness or paralysis or loss of use of either side. Denies problems with gait or speech. Denies sensory or motor loss. PSYCHIATRIC: Denies anxiety or stress or depression. All other systems reviewed and negative. PHYSICAL EXAMINATION: GENERAL: Well-appearing, well-nourished and in no acute distress. HEAD: Atraumatic, normocephalic. No scalp deformity, depression, or crepitance. EYES: Pupils are 3 mm and equal/round/reactive to light, extraocular movements intact, sclera anicteric, conjunctiva are normal. ENT: Nares patent bilaterally, oropharynx. Moist mucous membranes. No tonsil hypertrophy. NECK: Normal range of motion, supple without lymphadenopathy. LUNGS: Breath sounds present, equal, and clear to auscultation bilaterally. No wheezes, rales, or rhonchi. HEART: Regular rate and rhythm without murmurs, rubs, or gallops. 2+ peripheral pulses. Normal capillary refill. ABDOMEN: Soft, nontender, nondistended. Normoactive bowel sounds. No guarding, no rebound. No masses appreciated. BACK: Normal contour, no midline tenderness. Rectal exam deferred. GENITAL/PELVIC: Deferred. EXTREMITIES: Normal range of motion, no pitting or edema. No cyanosis. NEUROLOGICAL: No focal neurological deficits. Moves all extremities spontaneously and on command. PSYCH: Normal mood, normal affect. No suicidal thoughts/ideations. No homocidal thoughts/ideations. No hallucinations. SKIN: Warm, dry, normal turgor, no rashes or lesions noted. ASSESSMENT AND PLAN: This patient is a 38-year-old male who presents with left-sided chest pain that radiates to the left shoulder. Patient is low risk as his only risk factor is hypercholesterolemia. Patient has previously been admitted for cardiac workup on her previous episode of chest pain that cardiology felt was related to his reflux disease, had a follow-up nuclear stress test that was negative. 1. Will obtain labs, 2 sets of cardiac enzymes, chest x-ray, EKG, and observe the patient. 2. Will plan for discharge and outpatient referral to cardiology if workup is negative. TRAVEL OUTSIDE OF THE [place] IN LAST 30 DAYS: No - Related Data Allergies/Adverse Reactions: erythromycin base [Erythromycin Base] Allergy (Severe, Verified 05/20/18 17:10) Hives lamotrigine [From Lamictal] Allergy (Severe, Verified 05/20/18 17:10) Hives nitroglycerin Allergy (Verified 05/20/18 17:10) Hypotension rhondec Allergy (Severe, Uncoded 05/20/18 17:10) Past Medical History - General Information source: Patient - Social History Smoking Status: Current Every Day Smoker Frequency of alcohol use: None Drug Abuse: None Lives with: Family Family History: CAD, Hyperlipidemia, Hypertension Patient has suicidal ideation: No Patient has homicidal ideation: No - Past Medical History Cardiac Medical History: Reports: Hx Hypercholesterolemia Denies: Hx Coronary Artery Disease, Hx Heart Attack, Hx Hypertension Pulmonary Medical History: Reports: Hx Asthma - LAST ATTACK 08/02/15, Hx COPD, Hx Pneumonia - 10/02, Hx Sleep Apnea Denies: Hx Bronchitis, Hx Tuberculosis EENT Medical History: Reports: None Neurological Medical History: Reports: Hx Migraine. Denies: Hx Cerebrovascular Accident, Hx Seizures Endocrine Medical History: Reports: None Renal/ Medical History: Reports: None. 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 - Immunizations Hx Diphtheria, Pertussis, Tetanus Vaccination: Yes Hx Pneumococcal Vaccination: 10/26/12 Physical Exam - Vital signs Vitals: Temp Pulse Resp BP Pulse Ox 97.8 F 80 17 136/84 H 95 05/20/18 17:19 05/20/18 17:19 05/20/18 17:19 05/20/18 17:19 05/20/18 17:19 Course - Re-evaluation Re-evalutation: 05/21/18 01:16 2 sets of cardiac enzymes are negative. Patient will be discharged home with return precautions and follow-up with cardiology. Patient voices both understanding and agreeing with plan. - Vital Signs Vital signs: Temp Pulse Resp BP Pulse Ox 97.8 F 80 17 136/84 H 98 05/20/18 17:19 05/20/18 17:19 05/20/18 17:19 05/20/18 17:19 05/20/18 19:59 - Laboratory Result Diagrams: 05/20/18 18:47 05/20/18 18:47 Laboratory results interpreted by me: 05/20/18 05/20/18 18:47 18:47 WBC 13.9 H Absolute Lymphocytes 4.8 H BUN 6 L Calcium 11.2 H - Diagnostic Test Radiology reviewed: Image reviewed, Reports reviewed - EKG Interpretation by Me EKG shows normal: Sinus rhythm Rate: Normal Rhythm: No: NSR, SVT, Arrthymia, A.Fib, A.Flutter, with a 2:1 Block, V.Tach, Torsades, V. Fib, MAT, PVC's, APC's, Other [place]/QRS: No: Right axis deviation, Left axis deviation, RBBB, LBBB, IVCD, LAHB/LAFB, LPHB/LPFB, Bifasicular block Voltage: No: Increased voltage, Consistant with LVH, Decreased voltage, Throughout, Limb leads P Waves: No: LILI, LAE, Absent, AV Dissociation, Other Heart block present: No: 1st Degree, Mobitz 1, Mobitz 2, CHB (3rd degree block) When compared to previous EKG there are: No significant change Discharge - Discharge Clinical Impression: Chest pain Qualifiers: Chest pain type: unspecified Qualified Code(s): R07.9 - Chest pain, unspecified Condition: Good Disposition: HOME, SELF-CARE Instructions: Chest Pain of Unclear Cause ([facility]) Additional Instructions: You have been evaluated in the Emergency Department for chest pain. While here, you had normal blood work and chest x-ray and it is now safe to be discharged home. Please follow-up with your primary physician as instructed in 1 week to be rechecked. Return to the Emergency Department if you experience worsening pain, difficulty breathing, or any other concerning symptoms. Prescriptions: Diclofenac Sodium 75 mg PO BID #30 tablet.dr Referrals: POOL TOVAR MD [NO LOCAL MD] - Follow up as needed Print Language: Ukrainian
[2018-05-20] MEDS ORDERED: ASPIRIN 81 MG TABLET, CHEWABLE PO ONE (19:11)
[2018-05-20] MEDS ORDERED: MORPHINE SULFATE 10 MG/ML INJ IV ONE (19:11)
[2018-05-20 19:31] LABS: ALANINE AMINOTRANSFERASE 44 U/L (21-72); ALBUMIN 4.3 g/dL (3.5-5.0); ALKALINE PHOSPHATASE 82 U/L (38-126); ANION GAP 9 (5-19); ASPARTATE AMINO TRANSFERASE 33 U/L (17-59); BILIRUBIN,DIRECT 0.4 mg/dL (0.0-0.4); BILIRUBIN,TOTAL 0.5 mg/dL (0.2-1.3); BLOOD UREA NITROGEN 6 mg/dL (7-20); CALCIUM 11.2 mg/dL (8.4-10.2); CARBON DIOXIDE 27 mmol/L (22-30); CHLORIDE 104 mmol/L (98-107); GLUCOSE 82 mg/dL (75-110); POTASSIUM 4.3 mmol/L (3.6-5.0); SODIUM 139.9 mmol/L (137-145); TOTAL PROTEIN 7.2 g/dL (6.3-8.2)
[2018-05-21] MEDS ORDERED: TRAMADOL HCL 50 MG TABLET PO ONE (00:32)
[2018-05-21 01:31] VITALS: BP 117/89
== END 2018-05-21 01:35 | disposition home or self-care (01) ==
LOC: ER 17:08
DX: R07.9 Chest pain, unspecified (principal); F17.200 Nicotine dependence, unspecified, uncomplicated; E78.5 Hyperlipidemia, unspecified; J44.9 Chronic obstructive pulmonary disease, unspecified; Z88.3 Allergy status to other anti-infective agents
CPT/HCPCS: 93005; 99285; 96374; 36415; 85025; 80053; 84484; 71045; 93010; A9270 ×2; J2270

== ENCOUNTER 2018-07-11 17:42 | Emergency (ER) | payer MEDICARE ==
[2018-07-11] MEDS ORDERED: ASPIRIN 81 MG TABLET, CHEWABLE PO ONE (17:45)
[2018-07-11] MEDS ORDERED: NITROGLYCERIN/D5W 50 MG/250 ML RTUINJ IV PRN (17:59)
[2018-07-11 18:11] LABS: ABSOLUTE BASOPHILS # (AUTO) 0.1 10^3/uL (0.0-0.2); ABSOLUTE EOSINOPHILS # (AUTO) 0.2 10^3/uL (0.0-0.6); ABSOLUTE LYMPHOCYTES (AUTO) 4.5 10^3/uL (0.5-4.7); ABSOLUTE MONOCYTES (AUTO) 1.1 10^3/uL (0.1-1.4); ABSOLUTE NEUT (AUTO) 7.7 10^3/uL (1.7-8.2); BASOPHILS % (AUTO) 0.9 % (0-2); EOSINOPHILS % (AUTO) 1.2 % (0-6); HEMATOCRIT 47.7 % (37.9-51.0); HEMOGLOBIN 16.3 g/dL (13.5-17.0); MEAN CORPUSCULAR HEMOGLOBIN 31.2 pg (27.0-33.4); MEAN CORPUSCULAR HGB CONC 34.3 g/dL (32.0-36.0); MEAN CORPUSCULAR VOLUME 91 fl (80-97); MONOCYTES % (AUTO) 8.1 % (3-13); PLATELET COUNT 255 10^3/uL (150-450); RED BLOOD COUNT 5.24 10^6/uL (4.35-5.55); RED CELL DISTRIBUTION WIDTH 13.2 % (11.5-14.0); SEGMENTED NEUTROPHILS % (AUTO) 56.8 % (42-78); TOTAL CELLS COUNTED % (AUTO) 100 %; WHITE BLOOD COUNT 13.5 10^3/uL (4.0-10.5)
--- NOTE | 2018-07-11 18:13 | RADIOLOGY REPORT (SQ) ---
EXAM DESCRIPTION: CHEST SINGLE VIEW COMPLETED DATE/TIME: 07/11/2018 5:56 pm REASON FOR STUDY: chest pain COMPARISON: 05/20/2018 EXAM PARAMETERS: NUMBER OF VIEWS: One view. TECHNIQUE: Single frontal radiographic view of the chest acquired. RADIATION DOSE: NA LIMITATIONS: None. FINDINGS: LUNGS AND PLEURA: Ill-defined right lower lobe opacification with slight blurring of the r ight hemidiaphragm. MEDIASTINUM AND HILAR STRUCTURES: No masses. Contour normal. HEART AND VASCULAR STRUCTURES: Heart normal in size. Normal vasculature. BONES: No acute findings. HARDWARE: None in the chest. OTHER: No other significant finding. IMPRESSION: Cannot exclude a minimal right lower lobe pneumonia. TECHNICAL DOCUMENTATION: JOB ID: [id number] [employer]- All Rights Reserved Reading location - IP/workstation name: [email or web address]
[2018-07-11 18:32] LABS: ALANINE AMINOTRANSFERASE 28 U/L (21-72); ALBUMIN 4.3 g/dL (3.5-5.0); ALKALINE PHOSPHATASE 91 U/L (38-126); ANION GAP 14 (5-19); ASPARTATE AMINO TRANSFERASE 22 U/L (17-59); BILIRUBIN,DIRECT 0.3 mg/dL (0.0-0.4); BILIRUBIN,TOTAL 0.5 mg/dL (0.2-1.3); BLOOD UREA NITROGEN 8 mg/dL (7-20); CALCIUM 10.8 mg/dL (8.4-10.2); CARBON DIOXIDE 28 mmol/L (22-30); CHLORIDE 101 mmol/L (98-107); CREATINE KINASE 67 U/L (55-170); GLUCOSE 111 mg/dL (75-110); POTASSIUM 4.3 mmol/L (3.6-5.0); SODIUM 143.3 mmol/L (137-145); TOTAL PROTEIN 7.7 g/dL (6.3-8.2)
[2018-07-11] MEDS ORDERED: NORMAL SALINE 1000 ML 1,000 ML IV ONE (18:36)
[2018-07-11] MEDS ORDERED: ONDANSETRON HCL INJ/PF 4 MG/2 ML SDV IV ONE ×2 (18:38→19:45)
[2018-07-11 18:44] LABS: CREATINE KINASE MB 0.62 ng/mL (<4.55); TROPONIN I < 0.012 ng/mL
[2018-07-11] MEDS ORDERED: MORPHINE SULFATE 10 MG/ML INJ IV ONE ×2 (18:46→19:45)
--- NOTE | 2018-07-11 20:59 | ER Document Report ---
ED General - General Chief Complaint: Chest Pain Stated Complaint: CHEST PAIN Time Seen by Provider: 07/11/18 17:54 Primary Care Provider: POOL TOVAR MD [Primary Care Provider] - Follow up as needed TRAVEL OUTSIDE OF THE [place] IN LAST 30 DAYS: No - HPI Notes: Patient is a 38-year-old male who presents to the emergency department for evaluation of chest pain. It is left-sided with radiation into the shoulder and the upper arm. He describes it as crushing. He rates it initially a 10 out of 10. He states he got some relief from the aspirin and nitroglycerin administered by EMS. He states he has associated shortness of breath, nausea, diaphoresis. He had a recent stress test performed by [facility] physicians. He was told that this was positive. He is scheduled for a heart catheterization with Dr. Rodas on . He had this pain intimately for a few days but it became more steady and intense today. It was not exertional. Otherwise he states his been taking his medications as prescribed. - Related Data Allergies/Adverse Reactions: erythromycin base [Erythromycin Base] Allergy (Severe, Verified 05/20/18 17:10) Hives lamotrigine [From Lamictal] Allergy (Severe, Verified 05/20/18 17:10) Hives nitroglycerin Allergy (Verified 05/20/18 17:10) Hypotension rhondec Allergy (Severe, Uncoded 05/20/18 17:10) Past Medical History - General Information source: Patient - Social History Smoking Status: Current Every Day Smoker Frequency of alcohol use: Social Drug Abuse: None Family History: CAD - Father from an [place] at the age of 50, Hyperlipidemia, Hypertension - Past Medical History Cardiac Medical History: Reports: Hx Hypercholesterolemia, Hx Hypertension Denies: Hx Coronary Artery Disease, Hx Heart Attack Pulmonary Medical History: Reports: Hx Asthma - LAST ATTACK 08/02/15, Hx COPD, Hx Pneumonia - 10/02, Hx Sleep Apnea Denies: Hx Bronchitis, Hx Tuberculosis Neurological Medical History: Reports: Hx Migraine. 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 - Immunizations Hx Diphtheria, Pertussis, Tetanus Vaccination: Yes Hx Pneumococcal Vaccination: 10/26/12 Review of Systems - Review of Systems Constitutional: No symptoms reported EENT: No symptoms reported Cardiovascular: See HPI Respiratory: See HPI Gastrointestinal: No symptoms reported Genitourinary: No symptoms reported Musculoskeletal: No symptoms reported Skin: No symptoms reported Neurological/Psychological: No symptoms reported Physical Exam - Vital signs Vitals: Resp Pulse Ox 18 92 07/11/18 17:45 07/11/18 17:45 - Notes Notes: Morbidly obese 38-year-old male, appears his stated age in no acute distress. Vital signs reviewed, please refer to chart. Head is normocephalic, atraumatic. Pupils equal round, reactive to light. Neck is supple without meningismus. Heart is regular rate and rhythm. Lungs are clear to auscultation bilaterally. Abdomen is soft, nontender, normoactive bowel sounds throughout. Extremities without cyanosis, clubbing. Posterior calves are nontender. Peripheral pulses are equal. Skin is warm, mildly diaphoretic. Patient is awake, alert, neurological exam is nonfocal. Course - Re-evaluation Re-evalutation: 07/11/18 20:57 Patient presented to the emergency department for evaluation. On arrival the patient was placed on a cardiac exercise specialist and laboratory investigations were ordered. Given this patient's multiple risk factors and reported history of a recent positive stress test. He was placed on a nitroglycerin drip. Unfortunately, a 5 mcg/min drip precipitously drop the patient's blood pressure. He was given morphine. When his blood pressure would not tolerate further tolerate it, he was restarted on low-dose at 2 mcg/min. Patient's pain has slowly improved, but he does continue to still have some pain. He does remain stable. First set of enzymes is negative. EKG reveals no acute signs of ST changes. I spoke with Jeanmarie Pinto, nurse practitioner at [facility], on-call for cardiology. He states that there is some question as to whether or not the patient stress test was absolutely positive. It was interpreted as negative, but the physician in follow-up called it positive and heart catheterization was scheduled. At this point, this patient is still consistent with unstable angina. I do not have the facilities to care for that here in this hospital. They happily excepted the patient under Dr. Hammonds. Unfortunately they do not have any beds currently. We will be contacted when a bed becomes available. Patient will be maintained on nitroglycerin drip. Will administer Lovenox 1 mg/kg every 12 hours while awaiting bed. - Vital Signs Vital signs: Temp Pulse Resp BP Pulse Ox 98.6 F 13 131/62 H 95 07/12/18 15:17 07/12/18 15:01 07/12/18 15:01 07/12/18 15:01 - Laboratory Result Diagrams: 07/11/18 18:04 07/11/18 18:04 Laboratory results interpreted by me: 07/11/18 07/11/18 18:04 18:04 WBC 13.5 H Glucose 111 H Calcium 10.8 H Critical Care Note - Critical Care Note Total time excluding time spent on procedures (mins): 30 Discharge - Discharge Clinical Impression: Unstable angina Condition: Stable Disposition: [facility] Admitting Provider: Dr. Hammonds Referrals: POOL TOVAR MD [Primary Care Provider] - Follow up as needed
--- NOTE | 2018-07-11 22:39 | EKG REPORT ---
SEVERITY:- NORMAL ECG - SINUS RHYTHM : Confirmed by: Tae Vale 11-Jul-2018 22:38:31
[2018-07-12] MEDS: ENOXAPARIN SODIUM INJ 150 MG/1 ML DISP.SYRIN SUBCUT SCH ×2 (00:53→10:34)
[2018-07-12] MEDS ORDERED: ACETAMINOPHEN 325 MG TABLET PO ONE (05:42)
[2018-07-12 06:08] LABS: APPEARANCE,URINE CLEAR; BILIRUBIN,URINE NEGATIVE (NEGATIVE); COLOR,URINE YELLOW; GLUCOSE, URINE NEGATIVE (NEGATIVE); KETONES,URINE NEGATIVE (NEGATIVE); LEUKOCYTE ESTERASE,URINE NEGATIVE (NEGATIVE); NITRITE,URINE NEGATIVE (NEGATIVE); PROTEIN,URINE NEGATIVE (NEGATIVE); URINE SPECIFIC GRAVITY 1.006; UROBILINOGEN,URINE NEGATIVE mg/dL (<2.0)
[2018-07-12] MEDS ORDERED: ALPRAZOLAM 0.5 MG TABLET PO ONE (10:38)
[2018-07-12] MEDS ORDERED: NORMAL SALINE 1000 ML 1,000 ML IV ONE ×2 (10:38→11:47)
--- NOTE | 2018-07-12 10:38 | ER Document Report ---
Doctor's Note Notes: 07/12/18 10:34 Rounds: Chart reviewed and patient interviewed. Patient had a comfortable night and was able to sleep, but is complaining of pain again this morning. His EKG and 2 troponins have been normal. Patient is awaiting transfer to [facility]. Diagnosis unstable angina. Patient has been having chest pains off and on for several months. Worsened in the recent days and weeks. He had a stress test done on June 24 which the patient said showed some abnormality and he is scheduled for cardiac cath that [facility] this coming . Patient's soda drier feeder in [place] is Dr. Rodas. Patient is awaiting transfer to [facility], but thus far, no beds are available. It is difficult to decide how to manage patient's chest pain. His blood pressures running about 104 systolic. He says nitroglycerin lowers his blood pressure significantly. His drip of nitro is only at 5 mics! Plan to give him a liter or 2 of saline to try to get his blood pressure up and then treat chest pain with higher dose of nitro. Still awaiting transfer. Ruben Holland MD
[2018-07-12] MEDS ORDERED: ONDANSETRON HCL INJ/PF 4 MG/2 ML SDV IV ONE ×2 (11:48→14:30)
--- NOTE | 2018-07-12 12:44 | EKG REPORT ---
SEVERITY:- NORMAL ECG - SINUS RHYTHM : Confirmed by: Tae Vale 12-Jul-2018 12:43:29
[2018-07-12] MEDS ORDERED: OXYCODONE-ACETAMINOPHEN 5-325 MG TABLET PO ONE (14:52)
[2018-07-12 15:18] VITALS: BP 131/62
== END 2018-07-12 15:48 | disposition short-term general hospital (02) ==
LOC: ER 17:42
DX: I20.9 Angina pectoris, unspecified (principal); R07.9 Chest pain, unspecified; R06.02 Shortness of breath; R61 Generalized hyperhidrosis; E66.01 Morbid (severe) obesity due to excess calories; E78.00 Pure hypercholesterolemia, unspecified; I10 Essential (primary) hypertension; J44.9 Chronic obstructive pulmonary disease, unspecified; F17.210 Nicotine dependence, cigarettes, uncomplicated; Z90.49 Acquired absence of other specified parts of digestive tract; Z88.3 Allergy status to other anti-infective agents
CPT/HCPCS: 93005 ×2; 99285; 96372; 96361; 96375; 96365; 96366; 36415; 82553; 82550; 85025; 80053; 81001; 84484; 71045; 93010 ×2; A9270 ×3; J1650; J2270; J2405 ×2; J3490; J7030 ×2

== ENCOUNTER 2019-07-30 14:55 | Emergency (ER) | payer MEDICARE ==
--- NOTE | 2019-07-30 15:36 | ER Document Report ---
ED Dizziness/Weakness - General Chief Complaint: General Weakness Stated Complaint: WEAKNESS Time Seen by Provider: 07/30/19 15:27 Primary Care Provider: POOL TOVAR MD [NO LOCAL MD] - Follow up as needed Information source: Patient TRAVEL OUTSIDE OF THE [place] IN LAST 30 DAYS: No - HPI Patient complains to provider of: Weakness - This 39-year-old male presented to the emergency room today stating he had weakness and chest pain over the last 2 days. He does have history of chest pain in the past does smoke and is rather obese Onset: Just prior to arrival Onset/Duration: Intermittent Quality of pain: No pain Severity: Moderate Associated symptoms: None Exacerbated by: Change in position - Related Data Allergies/Adverse Reactions: erythromycin base [Erythromycin Base] Allergy (Severe, Verified 07/30/19 15:28) Hives lamotrigine [From Lamictal] Allergy (Severe, Verified 07/30/19 15:28) Hives nitroglycerin Allergy (Verified 07/30/19 15:28) Hypotension rhondec Allergy (Severe, Uncoded 05/20/18 17:10) Past Medical History - General Information source: Patient - Social History Smoking Status: Current Every Day Smoker Frequency of alcohol use: None Drug Abuse: None Lives with: Alone Family History: CAD - Father from an [place] at the age of 50, Hyperlipidemia, Hypertension - Past Medical History Cardiac Medical History: Reports: Hx Hypercholesterolemia, Hx Hypertension Denies: Hx Coronary Artery Disease, Hx Heart Attack Pulmonary Medical History: Reports: Hx Asthma - LAST ATTACK 08/02/15, Hx COPD, Hx Pneumonia - 10/02, Hx Sleep Apnea Denies: Hx Bronchitis, Hx Tuberculosis Neurological Medical History: Reports: Hx Migraine. 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 - Immunizations Hx Diphtheria, Pertussis, Tetanus Vaccination: Yes Hx Pneumococcal Vaccination: 10/26/12 Review of Systems - Review of Systems Constitutional: No symptoms reported EENT: No symptoms reported Cardiovascular: No symptoms reported Respiratory: No symptoms reported Gastrointestinal: No symptoms reported Genitourinary: No symptoms reported Male Genitourinary: No symptoms reported Musculoskeletal: No symptoms reported Skin: No symptoms reported Hematologic/Lymphatic: No symptoms reported Neurological/Psychological: No symptoms reported Physical Exam - Vital signs Vitals: Temp Pulse Resp BP Pulse Ox 99.0 F 96 24 H 129/85 H 92 07/30/19 15:01 07/30/19 15:01 07/30/19 15:01 07/30/19 15:01 07/30/19 15:01 Interpretation: Normal - General General appearance: Appears well, Alert - HEENT Head: Normocephalic, Atraumatic Eyes: Normal Pupils: PERRL - Respiratory Respiratory status: No respiratory distress Chest status: Nontender Breath sounds: Normal Chest palpation: Normal - Cardiovascular Rhythm: Regular Heart sounds: Normal auscultation Murmur: No - Abdominal Inspection: Normal Distension: No distension Bowel sounds: Normal Tenderness: Nontender Organomegaly: No organomegaly - Back Back: Normal, Nontender - Extremities General upper extremity: Normal inspection, Nontender, Normal color, Normal ROM, Normal temperature General lower extremity: Normal inspection, Nontender, Normal color, Normal ROM, Normal temperature, Normal weight bearing. No: David's sign - Neurological Neuro grossly intact: Yes Cognition: Normal Orientation: AAOx4 Lance Coma Scale Eye Opening: Spontaneous [place]illito Coma Scale Verbal: Oriented [place]illito Coma Scale Motor: Obeys Commands Rillito Coma Scale Total: 15 Speech: Normal Motor strength normal: LUE, RUE, LLE, RLE Sensory: Normal - Psychological Associated symptoms: Normal affect, Normal mood - Skin Skin Temperature: Warm Skin Moisture: Dry Skin Color: Normal Course - Re-evaluation Re-evalutation: 07/30/19 17:36 Is a 39-year-old male who presented to the emergency room today with chest discomfort 3 out of 10 had gone away while he was here he states that the pain came back at approximately 515. Did have a set of cardiac markers which were negative EKG was negative after the recurrence of chest pain normal EKG was done patient was provided with the nitroglycerin. Call was put out to for admission and was accepted. - Vital Signs Vital signs: Temp Pulse Resp BP Pulse Ox 99.0 F 96 24 H 129/85 H 92 07/30/19 15:31 07/30/19 15:01 07/30/19 15:01 07/30/19 15:01 07/30/19 15:01 - Laboratory Result Diagrams: 07/30/19 15:49 07/30/19 15:49 Laboratory results interpreted by me: 07/30/19 07/30/19 15:49 15:49 WBC 13.1 H Calcium 10.3 H Labs- All tests 24 hr 07/30/19 07/30/19 07/30/19 15:49 15:49 15:49 WBC 13.1 H RBC 5.30 Hgb 16.2 Hct 47.9 MCV 90 MCH 30.6 MCHC 33.9 RDW 13.2 Plt Count 280 Lymph % (Auto) 33.1 [place] % (Auto) 8.0 Eos % (Auto) 1.1 Baso % (Auto) 1.1 Absolute Neuts (auto) 7.4 Absolute Lymphs (auto) 4.3 Absolute Monos (auto) 1.0 Absolute Eos (auto) 0.1 Absolute Basos (auto) 0.1 Seg Neutrophils % 56.7 Sodium 138.2 Potassium 4.3 Chloride 104 Carbon Dioxide 25 Anion Gap 9 BUN 15 Creatinine 0.73 Est GFR ( Amer) > 60 Est GFR (MDRD) Non-Af > 60 Glucose 81 Calcium 10.3 H Total Bilirubin 0.3 Direct Bilirubin 0.0 Neonat Total Bilirubin Not Reportable Neonat Direct Bilirubin Not Reportable Neonat Indirect Bili Not Reportable AST 33 ALT 36 Alkaline Phosphatase 64 Troponin I Total Protein 7.5 Albumin 4.5 Lipase 89.8 Urine Opiates Screen Urine Methadone Screen Ur Barbiturates Screen Ur Phencyclidine Scrn Ur Amphetamines Screen U Benzodiazepines Scrn Urine Cocaine Screen U Marijuana (THC) Screen Influenza A (Rapid) NEGATIVE Influenza B (Rapid) NEGATIVE 07/30/19 07/30/19 15:49 15:49 WBC RBC Hgb Hct MCV MCH MCHC RDW Plt Count Lymph % (Auto) [place] % (Auto) Eos % (Auto) Baso % (Auto) Absolute Neuts (auto) Absolute Lymphs (auto) Absolute Monos (auto) Absolute Eos (auto) Absolute Basos (auto) Seg Neutrophils % Sodium Potassium Chloride Carbon Dioxide Anion Gap BUN Creatinine Est GFR ( Amer) Est GFR (MDRD) Non-Af Glucose Calcium Total Bilirubin Direct Bilirubin Neonat Total Bilirubin Neonat Direct Bilirubin Neonat Indirect Bili AST ALT Alkaline Phosphatase Troponin I < 0.012 Total Protein Albumin Lipase Urine Opiates Screen NEGATIVE Urine Methadone Screen NEGATIVE Ur Barbiturates Screen NEGATIVE Ur Phencyclidine Scrn NEGATIVE Ur Amphetamines Screen NEGATIVE U Benzodiazepines Scrn UNCONFIRMED POSITIVE Urine Cocaine Screen NEGATIVE U Marijuana (THC) Screen NEGATIVE Influenza A (Rapid) Influenza B (Rapid) - Diagnostic Test Radiology results interpreted by me: 07/30/19 17:39 Chest X-Ray 07/30/19 15:36 IMPRESSION: NO ACUTE RADIOGRAPHIC FINDING IN THE CHEST. Discharge - Discharge Clinical Impression: Chest pain Qualifiers: Chest pain type: other chest pain Qualified Code(s): R07.89 - Other chest pain; R07.8 - Other chest pain Disposition: ADMITTED OBSERVATION Admitting Provider: [facility] Referrals: POOL TOVAR MD [NO LOCAL MD] - Follow up as needed
[2019-07-30 16:15] LABS: ABSOLUTE BASOPHILS # (AUTO) 0.1 10^3/uL (0.0-0.2); ABSOLUTE EOSINOPHILS # (AUTO) 0.1 10^3/uL (0.0-0.6); ABSOLUTE LYMPHOCYTES (AUTO) 4.3 10^3/uL (0.5-4.7); ABSOLUTE NEUT (AUTO) 7.4 10^3/uL (1.7-8.2); BASOPHILS % (AUTO) 1.1 % (0-2); EOSINOPHILS % (AUTO) 1.1 % (0-6); HEMATOCRIT 47.9 % (37.9-51.0); HEMOGLOBIN 16.2 g/dL (13.5-17.0); LYMPHOCYTES % (AUTO) 33.1 % (13-45); MEAN CORPUSCULAR HEMOGLOBIN 30.6 pg (27.0-33.4); MEAN CORPUSCULAR HGB CONC 33.9 g/dL (32.0-36.0); MEAN CORPUSCULAR VOLUME 90 fl (80-97); PLATELET COUNT 280 10^3/uL (150-450); RED CELL DISTRIBUTION WIDTH 13.2 % (11.5-14.0); SEGMENTED NEUTROPHILS % (AUTO) 56.7 % (42-78); TOTAL CELLS COUNTED % (AUTO) 100 %; WHITE BLOOD COUNT 13.1 10^3/uL (4.0-10.5)
--- NOTE | 2019-07-30 16:16 | RADIOLOGY REPORT (SQ) ---
EXAM DESCRIPTION: CHEST SINGLE VIEW IMAGES COMPLETED DATE/TIME: 07/30/2019 3:57 pm REASON FOR STUDY: pain sp fall COMPARISON: 07/11/2018 EXAM PARAMETERS: NUMBER OF VIEWS: One view. TECHNIQUE: Single frontal radiographic view of the chest acquired. RADIATION DOSE: NA LIMITATIONS: None. FINDINGS: LUNGS AND PLEURA: Stable scarring in the left lower lobe or lingula. No evidence of pulmo nary contusion or pneumothorax. MEDIASTINUM AND HILAR STRUCTURES: No masses. Contour normal. HEART AND VASCULAR STRUCTURES: Heart normal in size. Normal vasculature. BONES: No acute findings. HARDWARE: None in the chest. OTHER: No other significant finding. IMPRESSION: NO ACUTE RADIOGRAPHIC FINDING IN THE CHEST. TECHNICAL DOCUMENTATION: JOB ID: [id number] [employer]- All Rights Reserved Reading location - IP/workstation name: [email or web address]
[2019-07-30 16:25] LABS: A TYPE INFLUENZA AG NEGATIVE (NEGATIVE); B INFLUENZA AG NEGATIVE (NEGATIVE)
[2019-07-30 16:33] LABS: URINE AMPHETAMINES SCREEN NEGATIVE; URINE BARBITURATES SCREEN NEGATIVE; URINE COCAINE SCREEN NEGATIVE; URINE MARIJUANA (THC) SCREEN NEGATIVE; URINE METHADONE SCREEN NEGATIVE; URINE PHENCYCLIDINE SCREEN NEGATIVE
[2019-07-30 16:34] LABS: ALBUMIN 4.5 g/dL (3.5-5.0); ALKALINE PHOSPHATASE 64 U/L (38-126); ANION GAP 9 (5-19); ASPARTATE AMINO TRANSFERASE 33 U/L (17-59); BILIRUBIN,TOTAL 0.3 mg/dL (0.2-1.3); BLOOD UREA NITROGEN 15 mg/dL (7-20); CALCIUM 10.3 mg/dL (8.4-10.2); CARBON DIOXIDE 25 mmol/L (22-30); CHLORIDE 104 mmol/L (98-107); GLUCOSE 81 mg/dL (75-110); POTASSIUM 4.3 mmol/L (3.6-5.0); TOTAL PROTEIN 7.5 g/dL (6.3-8.2); URINE BENZODIAZEPINES SCREEN UNCONFIRMED POSITIVE
[2019-07-30] MEDS ORDERED: ONDANSETRON HCL INJ/PF 4 MG/2 ML SDV IV ONE (16:42)
--- NOTE | 2019-07-30 17:30 | EKG REPORT ---
SEVERITY:- OTHERWISE NORMAL ECG - SINUS RHYTHM ATRIAL PREMATURE COMPLEX : Confirmed by: Nat May MD 30-Jul-2019 17:28:57
[2019-07-30] MEDS ORDERED: KETOROLAC TROMETHAMINE 60 MG/2 ML SDV IV ONE (17:41)
--- NOTE | 2019-07-30 18:52 | Progress Note ---
Provider Note Provider Note: ANNA ELLIS is a 39 year old male past medical history of asthma, hyperlipidemia, hypertension, tobacco abuse, morbid obesity, MERRILL, bipolar, PTSD. Last admitted at [facility] on 01/14/2017 for evaluation of chest pain, was evaluated by Dr. Atkins and no intervention was done at his chest pain was deemed to be noncardiac. Patient also stating that on June 2018 he had a left heart cath as outpatient which was reported as negative. Patient does not have any family history of CAD except for his father who had a heart attack at age 65. Today he presented to ED stating that that around 2 PM when he was watching TV he started having left-sided achy chest pain 3 out of 10 on intensity, constant, worse with coughing, no alleviating factors identified, denies any headache, shortness of breath, fever, chills, abdominal pain, nausea, endorses mild nonbloody diarrhea for the last 2 days, denies any recent travel or or sick contacts. In ED an EKG showed sinus rhythm, troponins negative x1. I was contacted by ED physician for patient to be admitted for further work-up. I saw patient in ED and extensively discussed his results and informed him about my plan for admission and further work up to rule out CAD. I told patient that in order for us to be sure that this chest pain is not cardiac related he would need to be admitted for further work-up and he would need to stay overnight. Unfortunately patient decided to leave AMA. 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 Patient voiced understanding.
[2019-07-30 19:20] VITALS: BP 135/75
--- NOTE | 2019-07-31 19:18 | EKG REPORT ---
SEVERITY:- NORMAL ECG - SINUS RHYTHM : Confirmed by: Nat May MD 31-Jul-2019 19:17:54
== END 2019-07-30 19:18 | disposition other institution (70) ==
LOC: ER 14:55
DX: R07.89 Other chest pain (principal); R53.1 Weakness; Z88.1 Allergy status to other antibiotic agents; Z88.8 Allergy status to other drugs, medicaments and biological substances; F17.200 Nicotine dependence, unspecified, uncomplicated; I10 Essential (primary) hypertension; J44.9 Chronic obstructive pulmonary disease, unspecified
CPT/HCPCS: 93005; 99285; 96374; 96375; 83690; 85025; 80053; 84484; 80307; 87804; 71045; 93010; J1885; J2405

== ENCOUNTER 2019-12-16 14:30 | Emergency (ER) | payer MEDICARE ==
--- NOTE | 2019-12-16 14:47 | ER Document Report ---
ED General - General Stated Complaint: CHEST PAIN Time Seen by Provider: 12/16/19 14:32 Notes: Patient presents with chest pain onset when he woke up at noon 2 and half hours ago. Sharp left-sided to the left shoulder. Similar to multiple past episodes. He says he has a history of angina and had a cath at [facility] with 2 stents however when I look in epic to the [facility] records he had a clean cath in 2019, with no CAD at all and has been seen several times for noncardiac chest pain. TRAVEL OUTSIDE OF THE [place] IN LAST 30 DAYS: No - Related Data Allergies/Adverse Reactions: erythromycin base [Erythromycin Base] Allergy (Severe, Verified 07/30/19 15:28) Hives lamotrigine [From Lamictal] Allergy (Severe, Verified 07/30/19 15:28) Hives nitroglycerin Allergy (Verified 07/30/19 15:28) Hypotension rhondec Allergy (Severe, Uncoded 05/20/18 17:10) Past Medical History - General Information source: Patient - Social History Smoking Status: Former Smoker Family History: CAD - Father from an [place] at the age of 50, Hyperlipidemia, Hypertension - Past Medical History Cardiac Medical History: Reports: Hx Hypercholesterolemia, Hx Hypertension Denies: Hx Coronary Artery Disease, Hx Heart Attack Pulmonary Medical History: Reports: Hx Asthma - LAST ATTACK 08/02/15, Hx COPD, Hx Pneumonia - 10/02, Hx Sleep Apnea Denies: Hx Bronchitis, Hx Tuberculosis Neurological Medical History: Reports: Hx Migraine. 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 - Immunizations Hx Diphtheria, Pertussis, Tetanus Vaccination: Yes Hx Pneumococcal Vaccination: 10/26/12 Review of Systems - Review of Systems Notes: REVIEW OF SYSTEMS GEN: Denies fever, chills, weight loss ENT: Denies sore throat, nasal discharge, ear pain EYES: Denies blurry vision, eye pain, discharge CV: Chest pain a RESP: Denies cough, shortness of breath, wheezing GI: Denies abdominal pain, nausea, vomiting, diarrhea MSK: Denies joint pain/swelling, edema, SKIN: Denies rash, skin lesions LYMPH: Denies swollen glands/lymph nodes NEURO: Denies headache, focal weakness or numbness, dizziness PSYCH: Denies depression, suicidal or homicidal ideation PHYSICAL EXAMINATION General: Obese. No acute distress, well-nourished Head: Atraumatic, normocephalic ENT: Mouth normal, oropharynx moist, no exudates or tonsillar enlargement Eyes: Conjunctiva normal, pupils equal, lids normal Neck: No JVD, supple, no guarding CVS: Normal rate, regular rhythm, no murmurs Resp: No resp distress, equal and normal breath sounds bilaterally GI: Nondistended, soft, no tenderness to palpation, no rebound or guarding Ext: No deformities, no edema, normal range of motion in upper and lower ext Back: No CVA or midline TTP Skin: No rash, warm Lymphatic: No lymphadeopathy noted Neuro: Awake, alert. Face symmetric. GCS 15. Physical Exam - Vital signs Vitals: Resp Pulse Ox 19 96 12/16/19 14:49 12/16/19 14:49 Course - Re-evaluation Re-evalutation: 12/16/19 15:55 Patient presents with atypical chest pain in the setting of a normal cath less than 12 months ago, with no EKG changes or clinical/vital sign abnormalities. Looks well in the ER. Give Toradol and Valium which led to some improvement. Troponin negative, does have an elevated white count but is not coughing has clear to auscultation and good breath sounds with normal saturation. Believe this is atypical or chest wall related and the patient is stable for discharge to follow-up with primary care. - Vital Signs Vital signs: Temp Pulse Resp BP Pulse Ox 97.8 F 23 H 133/88 H 94 12/16/19 14:50 12/16/19 14:50 12/16/19 14:50 12/16/19 14:50 - Laboratory Result Diagrams: 12/16/19 14:46 12/16/19 14:46 Laboratory results interpreted by me: 12/16/19 12/16/19 14:46 14:46 WBC 14.7 H Absolute Lymphs (auto) 6.6 H BUN 21 H - EKG Interpretation by Me EKG shows normal: Sinus rhythm Rate: Normal Rhythm: NSR When compared to previous EKG there are: No significant change - No ST elevation no ST depression or T wave changes. Discharge - Discharge Clinical Impression: Chest pain, atypical Condition: Good Disposition: HOME, SELF-CARE Instructions: Chest Wall Pain ([facility]), Chest Pain of Unclear Cause ([facility]) Additional Instructions: We did not find a serious cause of your chest pain. Your catheterization test at [facility] last year was normal, which when coupled with a negative EKG and blood testing rules out a heart attack. Please follow-up with your primary care within 5 days. Return to ER for worsening chest pain nausea vomiting shortness of breath.
[2019-12-16] MEDS ORDERED: DIAZEPAM INJ 10 MG/2 ML DISP.SYRIN IV ONE (14:50)
[2019-12-16] MEDS ORDERED: KETOROLAC TROMETHAMINE INJ/PF 30 MG/1 ML SDV IV ONE (14:50)
[2019-12-16 15:08] LABS: ABSOLUTE BASOPHILS # (AUTO) 0.1 10^3/uL (0.0-0.2); ABSOLUTE EOSINOPHILS # (AUTO) 0.2 10^3/uL (0.0-0.6); ABSOLUTE LYMPHOCYTES (AUTO) 6.6 10^3/uL (0.5-4.7); ABSOLUTE MONOCYTES (AUTO) 1.2 10^3/uL (0.1-1.4); ABSOLUTE NEUT (AUTO) 6.6 10^3/uL (1.7-8.2); BASOPHILS % (AUTO) 0.9 % (0-2); EOSINOPHILS % (AUTO) 1.6 % (0-6); HEMATOCRIT 47.4 % (37.9-51.0); HEMOGLOBIN 16.4 g/dL (13.5-17.0); MEAN CORPUSCULAR HEMOGLOBIN 31.1 pg (27.0-33.4); MEAN CORPUSCULAR HGB CONC 34.6 g/dL (32.0-36.0); MEAN CORPUSCULAR VOLUME 90 fl (80-97); MONOCYTES % (AUTO) 7.9 % (3-13); PLATELET COUNT 259 10^3/uL (150-450); RED BLOOD COUNT 5.28 10^6/uL (4.35-5.55); RED CELL DISTRIBUTION WIDTH 13.1 % (11.5-14.0); SEGMENTED NEUTROPHILS % (AUTO) 44.6 % (42-78); TOTAL CELLS COUNTED % (AUTO) 100 %; WHITE BLOOD COUNT 14.7 10^3/uL (4.0-10.5)
[2019-12-16 15:31] LABS: ANION GAP 12 (5-19); BLOOD UREA NITROGEN 21 mg/dL (7-20); CALCIUM 9.7 mg/dL (8.4-10.2); CARBON DIOXIDE 22 mmol/L (22-30); CHLORIDE 104 mmol/L (98-107); GLUCOSE 78 mg/dL (75-110); POTASSIUM 4.1 mmol/L (3.6-5.0)
[2019-12-16 15:59] VITALS: BP 109/67
--- NOTE | 2019-12-16 17:54 | EKG REPORT ---
SEVERITY:- NORMAL ECG - SINUS RHYTHM : Confirmed by: Darrion Hogue MD 16-Dec-2019 17:53:58
== END 2019-12-16 15:58 | disposition home or self-care (01) ==
LOC: ER 14:30
DX: R07.89 Other chest pain (principal); M25.512 Pain in left shoulder; I20.9 Angina pectoris, unspecified; Z88.1 Allergy status to other antibiotic agents; Z88.8 Allergy status to other drugs, medicaments and biological substances; Z87.891 Personal history of nicotine dependence; I10 Essential (primary) hypertension; J45.909 Unspecified asthma, uncomplicated
CPT/HCPCS: 93005; 99284; 96374; 96375; 36415; 85025; 80048; 84484; 93010; J3360; J1885